=== PATIENT | female | born 1950 | race Caucasian/White ===

== ENCOUNTER 2022-01-03 16:56 | Emergency (ER) | payer OTHER ==
--- OUTSIDE RECORDS SUMMARY | 2022-01-03 16:58 | XMS REPORT | Continuity of Care Document ---
:1950 Author Organization [facility] t Address [address] [place] [address] Care Team Providers Name Role Phone Roby Carreon Attending Clinician Unavailable Kasia-Mbayo_A_AH Attending Clinician Unavailable Kasia-Mbayo_A_AH Admitting Clinician Unavailable Payers Payer Name Policy Type Policy Number Effective Date Expiration Date S [facility] [place] - [id number] [employer] 00:00:00 (MEDICARE REPLACEMENT/ADVANT AGE - HMO) Problems This patient has no known problems. Allergies, Adverse Reactions, Alerts This patient has no known allergies or adverse reactions. Medications Ordered Filled Start Stop Current Ordering Indication Dosage Frequency Signature Comments Components Source Medication Medication Date Date Medication? Clinician (SIG) Name Name Calcium Calcium Yes Pietro [address] [facility] Vitamin D-3 Vitamin D-3 Yes Pietro [address] [facility] Hydrocortis Hydrocortis Yes Pietro INSERT ONE [facility] one Acetate one Acetate [facility] UP TO l THREE Outpati TIMES ent DAILY Clinics NEEDED Procedures This patient has no known procedures. Encounters Start End Encounter Admission Attending Care Care Encounter Source Date/Time Date/Time Type Type Clinicians Facility Department ID 2021-11-08 [facility] [id number] [facility] 12:52[facility]21 [id number] [facility] 2021-11-08 Outpatient Carreon, Na [facility] [id number] [facility] [address] 12:36:26 [id number] [facility] 2021-11-08 Outpatient Renea Carreon [facility] [id number] [facility] [address] 12:35:19 [id number] [facility] 2021-11-08 Outpatient [facility] [id number] [facility] [address] 12:34:09 [id number] [facility] 2021-11-08 Outpatient [facility] [id number] [facility] 12:29:16 [id number] [facility] 2021-11-08 Outpatient [facility] [id number] [facility] 12:18:22 [id number] [facility] 2021-11-08 Outpatient [facility] [id number] [facility] 12:17:42 [id number] [facility] 2021-08-01 2021-08-01 Outpatient [facility] [id number] [facility] 2021-04-22 2021-04-22 Outpatient [facility] [id number] [facility] 2021-02-03 2021-02-03 Outpatient [facility] [id number] [facility] 2021-01-27 2021-01-27 Outpatient [facility] [id number] [facility] 2021-01-27 2021-01-27 Outpatient [facility] [id number] [facility] 2021-01-27 2021-01-27 Outpatient [facility] [id number] [facility] 2020-12-15 2020-12-15 Outpatient [facility] [id number] [facility] 2020-12-13 2020-12-13 Outpatient [facility] [id number] [facility] 2020-11-17 2020-11-17 Outpatient [facility] [id number] [facility] 2020-11-09 2020-11-09 Outpatient [facility] [id number] [facility] 2020-10-18 2020-10-[facility] [id number] 2019-12-02 2019-12-02 [facility] [address] [place] [address] 07:23:00 07:23:00 _A_ [id number] Family Pract[facility] e 2019-10-02 2019-10-02 [facility] [id number] [address] 08:15:00 08:15:00 [facility] Clin[facility] 2019-09-03 2019-09-03 [facility] [id number] [address] 13:45:00 13:45:00 [facility] Clinics 2019-06-12 2019-06-12 [facility] [id number] 08:00:00 08:00:00 t [facility] Results This patient has no known results.
[2022-01-03] MEDS ORDERED: ONDANSETRON 4 MG/2 ML VIAL ONE ×2 (17:23→21:02)
[2022-01-03] MEDS ORDERED: FENTANYL CITR 100 MCG/2 ML ONE (17:23)
[2022-01-03 17:40] LABS: Absolute Lymphocytes (CBC) 1.4 K/uL (0.7-4.9); Hematocrit 43.3 % (36.0-45.0); Lymphocytes % 14.4 % (15.3-44.8); MPV 8.7 fL (7.6-11.3); RBC Red Blood Cell Count 4.46 M/uL (3.86-4.86)
[2022-01-03 17:45] LABS: Protime INR 0.91
[2022-01-03 18:01] LABS: Potassium 3.7 mmol/L (3.5-5.1)
--- NOTE | 2022-01-03 18:05 | RAD REPORT ---
EXAM DESCRIPTION: CT - Head Brain Wo Cont - 01/03/2022 5:56 pm CLINICAL HISTORY: TRAUMA COMPARISON: No comparisons TECHNIQUE: Axial 5 mm thick images of the head were obtained without IV contrast. All CT scans are performed using dose optimization technique as appropriate and may include automated exposure control or mA/KV adjustment according to patient size. FINDINGS: No intracranial hemorrhage, mass, edema or shift of mid-line structures. No acute infarcti on changes seen. No cortical edema or sulcal effacement. Atrophy changes are minimal. Ventricles are normal. No significant chronic ischemic changes seen. Arterial tree calcifications are present. Mastoid air cells and visualized portions of the paranasal sinuses are clear. No acute bony findings. IMPRESSION: Negative non-contrast CT head examination for acute finding.
--- NOTE | 2022-01-03 19:10 | RAD REPORT ---
EXAM DESCRIPTION: RAD - Tib Fib Left - 01/03/2022 6:32 pm CLINICAL HISTORY: Fall, leg pain COMPARISON: None. FINDINGS: Oblique fracture is present through the proximal shaft of the fibula with 1 full shaft wid th anterior displacement of the distal fracture fragment. Spiral type fracture is evident in the dist al shaft tibia. This is comminuted with a large free fracture fragment. Posterior fracture fragment i s displaced posteriorly 1 full shaft width. There is very slight medial angulation of the distal tibi a fracture fragment. No knee or ankle acute finding. Prominent degenerative changes are present in the midfoot. Soft tissue swelling changes are present. No foreign body in the soft tissues. IMPRESSION: Proximal left fibula shaft fracture and distal tibia shaft fracture as detailed.
[2022-01-03] MEDS ORDERED: LIDOCAINE 1% MPF 5 ML VIAL ONE (19:17)
--- NOTE | 2022-01-03 19:32 | EDPHYS ---
Physician Documentation [facility] Name: Preethi Ritter Age: 71 yrs Sex: Female : 1950 Arrival Date: 01/03/2022 Time: 16:59 Bed 3 Private MD: ED Physician Rajat Jackson HPI: 01/03 17:51 This 71 yrs old Female presents to ER via EMS with complaints of Fall Injury. jr8 17:51 Details of fall: The patient fell from an upright position, while standing. Onset: The jr8 symptoms/episode began/occurred acutely, today. Associated injuries: The patient sustained injury to the head, laceration, 2 cm(s), pain, left leg, deformity. Severity of symptoms: At their worst the symptoms were moderate, in the emergency department the symptoms are unchanged. The patient has not experienced similar symptoms in the past. The patient has not recently seen a physician. Patient stated that she had 3 shots of tequila and a few beers. Was walking and tripped falling into the fireplace. Hit right side of her head but denies loss of consciousness. Stated that her leg pivoted the wrong way and felt a snap in her lower left leg as well. EMS was called out and found patient to have a markedly deformed left lower extremity with a laceration to the right forehead. Patient denies any other pain or symptoms at this time.. Historical: - Allergies: 17:02 No Known Allergies; ap3 - Home Meds: 17:02 None [Active]; ap3 - PMHx: 17:02 None; ap3 - Immunization history:: Client reports receiving the 2nd dose of the Covid vaccine, and booster Flu vaccine is up to date. - Social history:: Smoking status: Patient reports the use of cigarette tobacco products, smokes one pack cigarettes per day. Patient uses alcohol, on a daily basis. ROS: 17:51 Eyes: Negative for injury, pain, redness, and discharge, ENT: Negative for injury, jr8 pain, and discharge, Neck: Negative for injury, pain, and swelling, Cardiovascular: Negative for chest pain, palpitations, and edema, Respiratory: Negative for shortness of breath, cough, wheezing, and pleuritic chest pain, Abdomen/GI: Negative for abdominal pain, nausea, vomiting, diarrhea, and constipation, Back: Negative for injury and pain, Neuro: Negative for headache, weakness, numbness, tingling, and seizure. 17:51 MS/extremity: Positive for decreased range of motion, deformity, ecchymosis, pain, swelling, tenderness, of the left leg. 17:51 Skin: Positive for laceration(s), of the face. Exam: 17:51 Constitutional: This is a well developed, well nourished patient who is awake, alert, jr8 and in no acute distress. 17:51 Eyes: Pupils equal round and reactive to light, extra-ocular motions intact. Lids and lashes normal. Conjunctiva and sclera are non-icteric and not injected. Cornea within normal limits. Periorbital areas with no swelling, redness, or edema. ENT: Nares patent. No nasal discharge, no septal abnormalities noted. Tympanic membranes are normal and external auditory canals are clear. Oropharynx with no redness, swelling, or masses, exudates, or evidence of obstruction, uvula midline. Mucous membranes moist. Neck: Trachea midline, no thyromegaly or masses palpated, and no cervical lymphadenopathy. Supple, full range of motion without nuchal rigidity, or vertebral point tenderness. No Meningismus. Chest/axilla: Normal chest wall appearance and motion. Nontender with no deformity. No lesions are appreciated. Cardiovascular: Regular rate and rhythm with a normal S1 and S2. No gallops, murmurs, or rubs. Normal PMI, no JVD. No pulse deficits. Respiratory: Lungs have equal breath sounds bilaterally, clear to auscultation and percussion. No rales, rhonchi or wheezes noted. No increased work of breathing, no retractions or nasal flaring. Abdomen/GI: Soft, non-tender, with normal bowel sounds. No distension or tympany. No guarding or rebound. No evidence of tenderness throughout. Back: No spinal tenderness. No costovertebral tenderness. Full range of motion. Skin: Warm, dry with normal turgor. Normal color with no rashes, no lesions, and no evidence of cellulitis. Neuro: Awake and alert, GCS 15, oriented to person, place, time, and situation. Motor strength 5/5 in all extremities. Sensory grossly intact. 17:51 Head/face: Noted is a laceration(s), that is deep, that is linear, 2 cm(s), of the right forehead. 17:51 Musculoskeletal/extremity: Extremities: grossly normal except: noted in the left leg: Patient has markedly deformed left lower extremity at the lower one third of the tibia. Bruising overlies the deformed area but there is no laceration or puncture to indicate open fracture. Patient has normal sensation to the foot with normal range of motion. 2+ dorsal pedal is pulses present to affected extremity. The remainder of the extremity unremarkable. Vital Signs: 17:01 BP 146 / 96; Pulse 91; Pulse Ox 94% on R/A; Weight 67.13 kg; Height 5 ft. 4 in. (162.56 ap3 cm); 18:44 BP 137 / 86; Pulse 91; Pulse Ox 97% on 2 lpm NC; ap3 19:19 BP 157 / 92; Pulse 97; Resp 17 S; Pulse Ox 96% on R/A; lg3 17:01 Body Mass Index 25.40 (67.13 kg, 162.56 cm) ap3 Procedures: 19:28 Splinting: Splint applied to left leg using Orthoglass splint, applied by myself. jr8 Examined by me, post splint application: neurovascular intact, 2+ distal pulses palpable, brisk capillary refill noted, Patient tolerated well. Laceration: 19:31 Wound Repair of 2cm ( 0.8in ) subcutaneous laceration to face. Linear shaped.. Minimal jr8 bleeding noted.. Distal neuro/vascular/tendon intact. Anesthesia: Local anesthetic administered with 2 mls of 1% lidocaine. Wound prep: Moderate cleansing with hibiclenz, Wound explored extensively. Skin closed with 2 4-0 Prolene using interrupted sutures and sterile technique. Patient tolerated well. MDM: 17:03 Patient medically screened. jr8 19:28 Data reviewed: vital signs, nurses notes, lab test result(s), radiologic studies, plain jr8 films. Data interpreted: Pulse oximetry: on room air is 96 %. Interpretation: normal. Counseling: I had a detailed discussion with the patient and/or guardian regarding: the historical points, exam findings, and any diagnostic results supporting the discharge/admit diagnosis, lab results, radiology results, the need to transfer to another facility, [facility] does not immediately have the required specialist. 19:28 ED course: Spoke with orthopedics at [facility] who accepted. Awaiting on medicine jr8 to call back. 01/03 17:16 Order name: CBC with Diff; Complete Time: 17:57 01/03 17:16 Order name: Basic Metabolic Panel; Complete Time: 18:13 01/03 17:16 Order name: XRAY Tib Fib LEFT; Complete Time: 19:31 01/03 17:16 Order name: Protime (+inr); Complete Time: 17:57 01/03 17:16 Order name: Ptt, Activated; Complete Time: 17:57 01/03 18:33 Order name: COVID-19 SARS RT PCR (Document "Date of Onset" if Symptomatic); Complete bd Time: 20:40 01/03 17:16 Order name: CT Head Brain wo Cont; Complete Time: 18:13 01/03 17:16 Order name: IV; Complete Time: 17:18 Administered Medications: 17:34 Drug: Zofran (Ondansetron) 4 mg Route: IVP; Site: right antecubital; ap3 20:06 Follow up: Response: No adverse reaction lg3 17:34 Drug: fentaNYL (PF) 50 mcg Route: IVP; Site: right antecubital; ap3 20:06 Follow up: Response: No adverse reaction; RASS: Alert and Calm (0) lg3 20:52 Drug: Lidocaine (1 %) 5 mg Route: Infiltration; kd3 21:06 Drug: Tetanus-Diphtheria Toxoid Adult 0.5 ml {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 Exp: kd3 12/29/2022. Lot #: [id number]. } Route: IM; Site: right deltoid; 21:08 CANCELLED (wrong route ): Dilaudid (HYDROmorphone) 1 mg IM once; RASS on ADMIN: kd3 Combtv4, Very Agttd3, Agttd2, Rstlss1, AlertClm0, Drwsy-1, Lt Sdtn-2, Mod Sdtn-3, Dp Sdtn-4, UnArsble-5 21:08 Drug: Zofran (Ondansetron) 4 mg Route: IVP; Site: right forearm; kd3 21:09 Drug: HYDROmorphone 1 mg Route: IVP; Site: right forearm; kd3 Disposition Summary: 01/03/22 19:31 Transfer Ordered Transfer Location: [facility] jr8 Reason: Higher level of care jr8 Condition: Stable jr8 Problem: new jr8 Symptoms: have improved jr8 Accepting Physician: [facility](01/03/22 21:23) lp1 Diagnosis - Oblique Fracture proximal Fibula jr8 - Oblique Fracture Distal Tibia jr8 Forms: - Medication Reconciliation Form jr8 - SBAR form jr8 Addendum: 01/05/2022 06:57 Co-signature as Attending Physician, Rajat Jackson MD. r n Signatures: Dispatcher [employer] EDMS Rajat Jackson MD MD rn Radha Bird, RN RN lp1 Perico Norton PA PA jr8 Gayathri Ch RN RN ap3 Mecca Narvaez RN RN kd3 Mariella Adame RN lg3 Corrections: (The following items were deleted from the chart) 01/03 21:08 21:07 Dilaudid (HYDROmorphone) 1 mg IM once; RASS on ADMIN: Combtv4, Very Agttd3, kd3 Agttd2, Rstlss1, AlertClm0, Drwsy-1, Lt Sdtn-2, Mod Sdtn-3, Dp Sdtn-4, UnArsble-5 ordered. kd3 21: 19:31 [facility] jr8 lp1
--- NOTE | 2022-01-03 19:32 | ER ---
Nurse's Notes [facility] Name: Preethi Ritter Age: 71 yrs Sex: Female : 1950 Arrival Date: 01/03/2022 Time: 16:59 Bed 3 Private MD: Diagnosis: Oblique Fracture proximal Fibula;Oblique Fracture Distal Tibia Presentation: 01/03 16:59 Chief complaint: Patient states: she was having a few drinks today, then fell from ap3 standing height while reaching for the remote. patient states she had 3 shots of tequila and approx 3 beer prior to fall. EMS reports a left lower leg deformity and has placed a splint. Care prior to arrival: Splint applied. Mechanism of Injury: Fall from standing position. Trauma event details: Injury occurred in the [facility], Injury occurred: at home. Injury occurred: January 03, 2022. 16:59 Acuity: PETE 3 ap3 16:59 Method Of Arrival: EMS: [facility] ap3 17:01 Coronavirus screen: Vaccine status: Patient reports receiving the 2nd dose of the covid ap3 vaccine. and booster At this time, the client does not indicate any symptoms associated with coronavirus-19. Ebola Screen: No symptoms or risks identified at this time. Initial Sepsis Screen: Does the patient meet any 2 criteria? No. Patient's initial sepsis screen is negative. Does the patient have a suspected source of infection? No. Patient's initial sepsis screen is negative. Risk Assessment: Do you want to hurt yourself or someone else? Patient reports no desire to harm self or others. Onset of symptoms was January 03, 2022. Triage Assessment: 17:03 General: Appears in no apparent distress. Behavior is calm. Pain: Complains of pain in ap3 left leg Pain began suddenly. Neuro: Level of Consciousness is awake, alert, obeys commands, Oriented to person, place, time, situation, Speech is normal. Cardiovascular: Patient's skin is warm and dry. Respiratory: Airway is patent Respiratory effort is even, unlabored, Respiratory pattern is regular, symmetrical. Musculoskeletal: Bony deformity noted of left leg. Injury Description: fall from standing. Historical: - Allergies: 17:02 No Known Allergies; ap3 - Home Meds: 17:02 None [Active]; ap3 - PMHx: 17:02 None; ap3 - Immunization history:: Client reports receiving the 2nd dose of the Covid vaccine, and booster Flu vaccine is up to date. - Social history:: Smoking status: Patient reports the use of cigarette tobacco products, smokes one pack cigarettes per day. Patient uses alcohol, on a daily basis. Screenin:04 Abuse screen: Denies threats or abuse. Nutritional screening: No deficits noted. ap3 Tuberculosis screening: No symptoms or risk factors identified. Fall Risk Fall in past 12 months (25 points). Secondary diagnosis (15 points) impaired mobility, No IV (0 pts). Ambulatory Aid- None/Bed Rest/Nurse Assist (0 pts). Gait- Impaired (20 pts.). Mental Status- Oriented to own ability (0 pts). Total Arana Fall Scale indicates High Risk Score (45 or more points). Fall prevention measures have been instituted. Side Rails Up X 2 Frequent Obs/Assessments Occuring As available patient and family educated on Fall Prevention Program and Strategies. Assessment: 18:45 Reassessment: Patient and/or family updated on plan of care and expected duration. Pain ap3 level reassessed. Patient is alert, oriented x 3, equal unlabored respirations, skin warm/dry/pink. 19:11 Reassessment: Patient appears in no apparent distress at this time. Patient and/or lg3 family updated on plan of care and expected duration. Pain level reassessed. Patient is alert, oriented x 3, equal unlabored respirations, skin warm/dry/pink. Vital Signs: 17:01 BP 146 / 96; Pulse 91; Pulse Ox 94% on R/A; Weight 67.13 kg; Height 5 ft. 4 in. (162.56 ap3 cm); 18:44 BP 137 / 86; Pulse 91; Pulse Ox 97% on 2 lpm NC; ap3 19:19 BP 157 / 92; Pulse 97; Resp 17 S; Pulse Ox 96% on R/A; lg3 17:01 Body Mass Index 25.40 (67.13 kg, 162.56 cm) ap3 ED Course: 16:59 Patient arrived in ED. jg9 16:59 Gayathri Ch, ADDISON is Primary Nurse. ap3 17:01 Triage completed. ap3 17:03 Perico Norton PA is PHCP. jr8 17:03 Rajat Jackson MD is Attending Physician. jr8 17:05 Arm band placed on left wrist. ap3 17:05 Patient has correct armband on for positive identification. Placed in gown. Bed in low ap3 position. Call light in reach. Side rails up X2. Pulse ox on. NIBP on. Door closed. Noise minimized. 17:14 Inserted saline lock: 22 gauge in right antecubital area, using aseptic technique. ap3 Blood collected. 17:49 Pt visited by Friend. ap3 17:[address] via wheelchair. ap3 17:58 CT Head Brain wo Cont In Process Unspecified. EDMS 18:33 XRAY Tib Fib LEFT In Process Unspecified. EDMS 18:36 initiated transfer to [facility]. bd 19:18 Primary Nurse role handed off by Gayathri Ch, ADDISON [facility] 19:19 Mariella Adame, ADDISON is Primary Nurse. lg3 20:23 administrative approval given by Annemarie London/ patient has been accepted to [address] 16 [address] 1635/ Dr. Durand accepted the patient in transfer/report to be called to [phone]. 21:10 No provider procedures requiring assistance completed. Patient transferred, IV remains kd3 in place. 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 Exp: kd3 12/29/2022. Lot #: [id number]. } Route: IM; Site: right deltoid; 21:08 CANCELLED (wrong route ): Dilaudid (HYDROmorphone) 1 mg IM once; RASS on ADMIN: kd3 Combtv4, Very Agttd3, Agttd2, Rstlss1, AlertClm0, Drwsy-1, Lt Sdtn-2, Mod Sdtn-3, Dp Sdtn-4, UnArsble-5 21:08 Drug: Zofran (Ondansetron) 4 mg Route: IVP; Site: right forearm; kd3 21:09 Drug: HYDROmorphone 1 mg Route: IVP; Site: right forearm; kd3 Outcome: 19:31 ER care complete, transfer ordered by MD. bray 21:11 Transferred by ground EMS kd3 21:11 Condition: stable 21:11 Discharge instructions given to patient, family, Instructed on discharge instructions, the need for transfer, Demonstrated understanding of instructions. 21:23 Patient left the ED. lp1 Signatures: Dispatcher [employer] EDMS Andreia Young Laura, RN RN lp1 Perico Norton PA PA jr8 Gayathri Ch RN RN ap3 Kristen Kunz mw2 Mariella Adame RN RN lg3 Mecca Narvaez RN RN kd3 Ericka Garcia RN RN jg9
[2022-01-03] MEDS ORDERED: TETANUS & DIPHTHERIA TOX,ADULT 0.5 ML VIAL ONE (20:33)
[2022-01-03] MEDS ORDERED: HYDROMORPHONE HCL 0.5 MG/0.5 ML INJ ONE (21:02)
[2022-01-03 21:36] VITALS: BP 157/92; O2SAT 96
== END 2022-01-03 21:23 | disposition short-term general hospital (02) ==
LOC: ER 16:56
PROC: 0JQ10ZZ Repair Face Subcutaneous Tissue and Fascia, Open Approach (ICD-10-PCS; principal; 2022-01-03)
PROC: 2W3RX1Z Immobilization of Left Lower Leg using Splint (ICD-10-PCS; 2022-01-03)
DX: S82.432A Displaced oblique fracture of shaft of left fibula, initial encounter for closed fracture (principal); S82.232A Displaced oblique fracture of shaft of left tibia, initial encounter for closed fracture; S01.81XA Laceration without foreign body of other part of head, initial encounter; W01.198A Fall on same level from slipping, tripping and stumbling with subsequent striking against other object, initial encounter; Y93.01 Activity, walking, marching and hiking; Z23 Encounter for immunization; Z20.822 Contact with and (suspected) exposure to COVID-19; F17.210 Nicotine dependence, cigarettes, uncomplicated
CPT/HCPCS: 85025; 80048; 36415; 85610; 85730; 70450; 73590; 90471; 90714; 99285; 12011; 29515; U0003; J3010; J1170; J2405 ×2

== ENCOUNTER → 2023-07-29 | Day surgery (SDC) | payer OTHER ==
--- NOTE | 2023-07-29 14:52 | RAD REPORT ---
EXAM DESCRIPTION: Ultrasound-guided vacuum assisted left breast core biopsy CLINICAL HISTORY: Breast mass R92.8 COMPARISON: 3D DIAG UNI F/U dated 07/09/2023; Follow Up Breast Axilla Comp dated 07/09/2023 FINDINGS: Informed consent was obtained and time-out was performed. Initial scanning revealed the taller than wide hypoechoic lesion present approximately at 2 o'clock p osition, corresponding to the finding on prior diagnostic mammogram and ultrasound. The patient's lef t breast was prepped and draped in the usual sterile fashion. 1% lidocaine was used for local anesthe tic purposes. Utilizing aseptic technique and real-time ultrasound guidance, a 12 gauge vacuum assisted core biopsy device was used to obtain 3 soft core specimens through the mass of interest. A post biopsy clip was then placed. All collected material was sent for cytology. Patient tolerated procedure well. IMPRESSION: Successful ultrasound guided vacuum assisted left breast mass biopsy.
== END ==
LOC: DS 09:31
PROVIDERS: ATTEND Family Medicine
DX: C50.412 Malignant neoplasm of upper-outer quadrant of left female breast (principal); Z17.0 Estrogen receptor positive status [ER+]
CPT/HCPCS: 19083; 88305

== ENCOUNTER 2023-08-28 10:20 | Emergency (ER) | payer OTHER ==
--- OUTSIDE RECORDS SUMMARY | 2023-08-28 10:23 | XMS REPORT | Clinical Summary ---
:1950 Author Organization [facility] MD [facility] Address [address] [place] [address] Care Team Providers Name Role Phone Ana Lilia Miller MD Unavailable Allergies Not on File Medications Not on file Active Problems Not on file Encounters Date Type Department Care Team Description 08/12/2023 Travel after 08/28/2022 Social History Tobacco Use Types Packs/Day Years Used Date Smoking Tobacco: Never Assessed Sex and Gender Information Value Date Recorded Sex Assigned at Not on file Gender Identity Not on file Sexual Orientation Not on file Job Start Date Occupation Industry Not on file Not on file Not on file Last Filed Vital Signs Not on file Plan of Treatment Not on file Results Not on fileafter 08/28/2022 Insurance Payer Benefit Plan / Subscriber ID Effective Phone Address T ype Group Dates [employer] WE[employer] [id number] 2022-Prese [address] Medicare MEDICARE MEDICARE [place], [place] ADVANTAGE ADVANTAGE [id number] Preethi Ritter Personal/Family Self 1950 [facility] [place] [place] [address] Care Teams Education Spec Relationship Specialty Start Date End Date Ana Lilia Miller MD PCP - External Referring Family Practice 08/12/23 [address] [place] [address]
--- OUTSIDE RECORDS SUMMARY | 2023-08-28 10:26 | XMS REPORT | Continuity of Care Document ---
:1950 Author Organization [facility] t Address [address] [facility] [facility] [place] [address] Care Team Providers Name Role Phone KOJO BURTON Primary Care Physician Unavailable Ana Lilia Miller Attending Clinician Unavailable Kooj Burton Attending Clinician Unavailable CRYSTAL SOUSA Attending Clinician Unavailable ALMA DELIA PALMER Attending Clinician Unavailable ALMA DELAI PALMER Attending Clinician Unavailable Doctor Unassigned, Kenly Attending Clinician Unavailable Mariam Mendieta MD Attending Clinician MARIAM MENDIETA Attending Clinician Unavailable Ladarius CRAWFORD, Maite Petersen Attending Clinician Christianne Rahman MD Attending Clinician [phone] Reza CRAWFORD, Neelima Gaston Attending Clinician CHRISTIANNE RAHMAN Attending Clinician Unavailable Ramo CRAWFORD, Roshni Sagastume Attending Clinician [phone] Nasrin Hernandez MD Attending Clinician Lorenzo Stoner MD Attending Clinician [phone] Marlaaycamille_A_AH Attending Clinician Unavailable MARIAM MENDIETA Admitting Clinician Unavailable MAITE PROCTOR Admitting Clinician Unavailable Sweta_A_AH Admitting Clinician Unavailable Payers Payer Name Policy Type Policy Number Effective Date Expiration Date Hannah montgomery [employer] [place] [id number] 2023 PLUS CLASSIC NO 00:00:00 PREMIUM HMO Well[employer] MCR C1 [id number] 2020 [facility] 00:00:00 - [facility] Wellcare C1 [id number] 2020 [facility] 00:00:00 - [facility] [place] [id number] - [employer] 00:00:00 (MEDICARE REPLACEMENT/ADV ANTAGE - HMO) Problems Condition Condition Condition Status Onset Resolution Last Treating Co mments Source Name Details Category Date Date Treatment Clinician Date Pain in Pain in Disease Active 2022-10 Univers both lower both lower 0-04 [facility] [place] [facility] Hyperlipid Hyperlipid Disease Active 2022-10 U nivers emia, emia, 0-04 ity [place] unspecifie [place] hyperlipid hyperlipid Br anch emia type emia type Cigarette Cigarette Disease Active 2022-10 Uni vers smoker smoker 0-04 ity of 00:00: [place] 00 Medical Branch Tibia Tibia Disease Active [facility] fracture fracture 01-03 00:00: Medical [address] [place] [address] [id number] Unsteady Problem Commo n gait when Spirit walking [facility] 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 unspecifie Medica l d type [place] [id number] Left ankle Problem Co mmon swelling [facility] [id number] Vitamin D Problem Comm on deficiency [facility] [id number] Trigger Problem Commo n finger, Spirit left ring - CHI finger [facility] [id number] Hyperchole Problem Com mon sterolemia Spirit - [facility] [id number] Internal Problem Commo n hemorrhoid Spirit s [facility] [id number] Elevated Problem Comm on BP without Spirit diagnosis - CHI of hypertensi [facility] [id number] Pain, Problem Commo n [id number] joint, Spirit hand, left - [facility] Tobacco Cigarette Problem Commo n user nicotine Spirit dependence - [facility] without complicati [facility] [id number] Age Problem Common related Spirit osteoporos - [facility] al fracture presence Smoker Smoker Problem [facility] Diverticul Diverticul Problem C ommon ar disease osis [facility] of colon [facility] Allergies, Adverse Reactions, Alerts Allergy Allergy Status Severity Reaction(s) Onset Inactive Treating Comm ents Source Name Type Date Date Clinician NO KNOWN Allergy [facility] Drug [facility] Social [facility] Social Habit Start Date Stop Date Quantity Comments Source History of tobacco Passive smoker Un iversity of use [facility] Sexual orientation [facility] Tobacco use and 2023-07-17 2023-07-17 Smokeless Universit y of exposure 00:00:00 00:00:00 tobacco non-user [facility] History of Social 2023-07-17 2023-07-17 Univers ity of function 00:00:00 00:00:00 [facility] Cigarettes smoked 2022-01-03 2022-01-03 [facility] [address] [facility] current (pack per 00:00:00 00:00:00 Medical Center day) - Reported Cigarette 2022-01-03 2022-01-03 [facility] [address] [facility] pack-years 00:00:00 00:00:00 [facility] Sex Assigned At [birth year] [facility] St Светлана velasquez 00:00:00 00:00:00 [facility] Center Smoking Status Start Date Stop Date Source Tobacco smoking consumption [facility] daily 2023-07-17 00:00:00 Univers [facility] Medications Ordered Filled Start Stop Current Ordering Indication Dosage Frequency Signature Comments Components Source Medication Medication Date Date Medication? Clinician (SIG) Name Name rosuvastati 2022-0 Yes at Univer s n 5 mg 8-23 bedtime. ity of tablet 00:00: [place] [facility] rosuvastati 3-0 Yes at Univer s n 5 mg 8-23 bedtime. ity of tablet 00:00: [place] [facility] rosuvastati 3-0 Yes at Univer s n 5 mg 8-23 bedtime. ity of tablet 00:00: [place] [facility] rosuvastati 2022-0 Yes at Univer s n 5 mg 8-23 bedtime. ity of tablet 00:00: [place] [facility] rosuvastati 2022-0 Yes at Univer s n 5 mg 8-23 bedtime. ity of tablet 00:00: [place] [facility] rosuvastati 2022-0 Yes at Univer s n 5 mg 8-23 bedtime. ity of tablet 00:00: [place] [facility] rosuvastati 2022-0 Yes at Univer s n 5 mg 8-23 bedtime. ity of tablet 00:00: [place] [facility] rosuvastati 2022-0 Yes at Univer s n 5 mg 8-23 bedtime. ity of tablet 00:00: [place] [facility] rosuvastati 2022-0 Yes at Univer s n 5 mg 8-23 bedtime. ity of tablet 00:00: [place] [facility] rosuvastati 3-0 Yes at Univer s n 5 mg 8-23 bedtime. ity of tablet 00:00: [place] [facility] rosuvastati 3-0 Yes at Univer s n 5 mg 8-23 bedtime. ity of tablet 00:00: [place] [facility] Branch calcium 2021-0 2023- No 1{tbl} QD Take 1 [facility] t carbonate-v -01-13 tablet by Светлана velasquez itamin D3 00:00: 23:59 mouth Medica l (OSCAL-D) 00 :00 daily. Center 500 mg(1,250mg) -200 unit per tablet calcium 2021-0 3- No 1{tbl} QD Take 1 [facility] t carbonate-v -01-13 tablet by Светлана velasquez itamin D3 00:00: 23:59 mouth Medica l (OSCAL-D) 00 :00 daily. Center 500 mg(1,250mg) -200 unit per tablet calcium 2022- No 1{tbl} QD Take 1 [facility] t carbonate-v 4-11 17-02 tablet by Светлана kes itamin D3 00:00: 23:59 mouth Medica l (OSCAL-D) 00 :00 daily. Center 500 mg(1,250mg) -200 unit per tablet calcium 2022- No 1{tbl} QD Take 1 [facility] t carbonate-v 4-02 -02 tablet by Светлана kes itamin D3 00:00: 23:59 mouth Medica l (OSCAL-D) 00 :00 daily. Center 500 mg(1,250mg) -200 unit per tablet calcium 2022- No 1{tbl} QD Take 1 [facility] t carbonate-v -11 17-02 tablet by Светлана kes itamin D3 00:00: 23:59 mouth Medica l (OSCAL-D) 00 :00 daily. Center 500 mg(1,250mg) -200 unit per tablet calcium 2022- No 1{tbl} QD Take 1 [facility] t carbonate-v 4-11 17-02 tablet by Светлана kes itamin D3 00:00: 23:59 mouth Medica l (OSCAL-D) 00 :00 daily. Center 500 mg(1,250mg) -200 unit per tablet nicotine 2021- No 1{patch QD Place [address] (NICODERM 4-02 05-02 } patch onto Nat es CQ) 21 00:00: 23:59 the skin Medica l mg/24 hr 00 :00 daily for Center patch 30 days. nicotine 2021- No 1{patch QD Place [address] (NICODERM 4-02 05-02 } patch onto Nat es CQ) 21 00:00: 23:59 the skin Medica l mg/24 hr 00 :00 daily for Center patch 30 days. nicotine 2021- No 1{patch QD Place [address] (NICODERM 4-02 05-02 } patch onto Nat es CQ) 21 00:00: 23:59 the skin Medica l mg/24 hr 00 :00 daily for Center patch 30 days. nicotine 2021- No 1{patch QD Place [address] (NICODERM 4-02 05-02 } patch onto Nat es CQ) 21 00:00: 23:59 the skin Medica l mg/24 hr 00 :00 daily for Center patch 30 days. UNKNOWN Yes LEFT LEG - [facility] 4-01 TOE TOUCH [facility] 00:00: WEIGHT Medical 00 BEARING Center ONLY FOR SIX WEEKS.. UNKNOWN Yes LEFT LEG - [facility] 4-01 TOE TOUCH [facility] 00:00: WEIGHT Medical 00 BEARING Center ONLY FOR SIX WEEKS.. UNKNOWN Yes LEFT LEG - [facility] 4-01 TOE TOUCH [facility] 00:00: WEIGHT Medical 00 BEARING Center ONLY FOR SIX WEEKS.. UNKNOWN Yes LEFT LEG - [facility] 4-01 TOE TOUCH [facility] 00:00: WEIGHT Medical 00 BEARING Center ONLY FOR SIX WEEKS.. UNKNOWN Yes LEFT LEG - [facility] 4-01 TOE TOUCH [facility] 00:00: WEIGHT Medical 00 BEARING Center ONLY FOR SIX WEEKS.. UNKNOWN Yes LEFT LEG - [facility] 4-01 TOE TOUCH [facility] 00:00: WEIGHT Medical 00 BEARING Center ONLY FOR SIX WEEKS.. senna-docus 2022- No 1{tbl} Take [address] ate -10 17- tablet by [facility] (SENOKOT S) 00:00: 23:59 mouth Medi sasha 8.6-50 mg 00 :00 every Center per tablet night as needed for Constipati on. senna-docus 2022- No 1{tbl} Take [address] ate 01-12- tablet by [facility] (SENOKOT S) 00:00: 23:59 mouth Medi sasha 8.6-50 mg 00 :00 every Center per tablet night as needed for Constipati on. senna-docus 2022- No 1{tbl} Take [address] ate -10 17- tablet by [facility] (SENOKOT S) 00:00: 23:59 mouth Medi sasha 8.6-50 mg 00 :00 every Center per tablet night as needed for Constipati on. senna-docus 2022- No 1{tbl} Take [address] ate 01-12 tablet by [facility] (SENOKOT S) 00:00: 23:59 mouth Medi sasha 8.6-50 mg 00 :00 every Center per tablet night as needed for Constipati on. senna-docus 2022- No 1{tbl} Take [address] ate 01-12 tablet by [facility] (SENOKOT S) 00:00: 23:59 mouth Medi sasha 8.6-50 mg 00 :00 every Center per tablet night as needed for Constipati on. senna-docus 2022- No 1{tbl} Take [address] ate 01-12 tablet by [facility] (SENOKOT S) 00:00: 23:59 mouth Medi sasha 8.6-50 mg 00 :00 every Center per tablet night as needed for Constipati on. acetaminoph 2022- No 650mg Take [address] en 01-12 tablets [facility] (TYLENOL) 00:00: 23:59 (650 mg Medi sasha 325 MG 00 :00 total) by Center tablet mouth every 4 (four) hours as needed for up to 360 days. acetaminoph 2022- No 650mg Take [address] en 01-12 tablets [facility] (TYLENOL) 00:00: 23:59 (650 mg Medi sasha 325 MG 00 :00 total) by Center tablet mouth every 4 (four) hours as needed for up to 360 days. acetaminoph 2022- No 650mg Take [address] en 01-12 tablets [facility] (TYLENOL) 00:00: 23:59 (650 mg Medi sasha 325 MG 00 :00 total) by Center tablet mouth every 4 (four) hours as needed for up to 360 days. acetaminoph 2022- No 650mg Take [address] en 01-12 tablets [facility] (TYLENOL) 00:00: 23:59 (650 mg Medi sasha 325 MG 00 :00 total) by Center tablet mouth every 4 (four) hours as needed for up to 360 days. acetaminoph 2022- No 650mg Take [address] en 01-12 tablets [facility] (TYLENOL) 00:00: 23:59 (650 mg Medi sasha 325 MG 00 :00 total) by Center tablet mouth every 4 (four) hours as needed for up to 360 days. acetaminoph No 650mg Take [address] en 01-12 tablets [facility] (TYLENOL) 00:00: 23:59 (650 mg Medi sasha 325 MG 00 :00 total) by Center tablet mouth every 4 (four) hours as needed for up to 360 days. aspirin 81 2021- No 81mg QD Take [address] MG EC 01-12 tablet (81 [facility] tablet 00:00: 23:59 mg total) Medic al 00 :00 by mouth Center daily for 21 days. aspirin 81 2021- No 81mg QD Take [address] MG EC 01-12 tablet (81 [facility] tablet 00:00: 23:59 mg total) Medic al 00 :00 by mouth Center daily for 21 days. aspirin 81 2021- No 81mg QD Take [address] MG EC 01-12 tablet (81 [facility] tablet 00:00: 23:59 mg total) Medic al 00 :00 by mouth Center daily for 21 days. aspirin 81 2021- No 81mg QD Take [address] MG EC 01-12 tablet (81 [facility] tablet 00:00: 23:59 mg total) Medic al 00 :00 by mouth Center daily for 21 days. cephalexin 2021- No 250mg Take [address] [facility] (KEFLEX) 01-12 capsule [facility] 250 MG 00:00: 23:59 (250 mg Medical capsule 00 :00 total) by Center mouth every 6 (six) hours for 5 days. HYDROcodone 2021- No 1{tbl} Take [address] -acetaminop 01-12 tablet by Светлана eva bloom (NORCO 00:00: 23:59 mouth Medic al 5-325) 00 :00 every 4 Center 5-325 mg (four) per tablet hours as needed for up to 5 days. Max Daily Amount: 6 tablets cephalexin 2021- No 250mg Take [address] [facility] (KEFLEX) 01-12 capsule [facility] 250 MG 00:00: 23:59 (250 mg Medical capsule 00 :00 total) by Center mouth every 6 (six) hours for 5 days. HYDROcodone 2021- No 1{tbl} Take [address] -acetaminop 01-12-06 tablet by Светлана bloom (NORCO 00:00: 23:59 mouth Medic al 5-325) 00 :00 every 4 Center 5-325 mg (four) per tablet hours as needed for up to 5 days. Max Daily Amount: 6 tablets cephalexin 2021- No 250mg Take [address] [facility] (KEFLEX) 01-12- capsule [facility] 250 MG 00:00: 23:59 (250 mg Medical capsule 00 :00 total) by Center mouth every 6 (six) hours for 5 days. HYDROcodone 2021- No 1{tbl} Take [address] -acetaminop 01-12- tablet by Светлана bloom (NORCO 00:00: 23:59 mouth Medic al 5-325) 00 :00 every 4 Center 5-325 mg (four) per tablet hours as needed for up to 5 days. Max Daily Amount: 6 tablets polyethylen 2021- No 17g Take [address] e glycol -10 17-04 by mouth [facility] (GLYCOLAX) 00:00: 23:59 daily as Me dical 17 gram 00 :00 needed for Center packet up to 3 days. polyethylen 2021- No 17g Take [address] e glycol -10 17-04 by mouth [facility] (GLYCOLAX) 00:00: 23:59 daily as Me dical 17 gram 00 :00 needed for Center packet up to 3 days. polyethylen 2021- No 17g Take [address] e glycol -10 17-04 by mouth [facility] (GLYCOLAX) 00:00: 23:59 daily as Me dical 17 gram 00 :00 needed for Center packet up to 3 days. Alendronate Alendronate 2021- No Alendronat Sodium 70 Sodium 70 7-15 01-11 e Sodium MG MG 00:00: 00:00 70 MG 00 :00 Alendronate Alendronate 2021- No Alendronat Sodium 70 Sodium 70 7-15 -11 e Sodium MG MG 00:00: 00:00 70 MG 00 :00 Celestone Celestone 1-0 No 6mg Com mon Soluspan Soluspan 2-04 Spirit (Betamethas (Betamethas 00:00: - CHI one) one) 00 [facility] Lidocaine Lidocaine 1-0 No 10mg Com 11-17 Spirit 00:00: - [facility]I 00 [facility] Celestone Celestone 2020-0 No 6mg Com mon Soluspan Soluspan 2-04 Spirit (Betamethas (Betamethas 00:00: - CHI one) one) 00 [facility] Lidocaine Lidocaine 2020-0 No 10mg Com 11-17 Spirit 00:00: - CHI 00 [facility] Celestone Celestone 2020-0 No 6mg Com mon Soluspan Soluspan 2-04 Spirit (Betamethas (Betamethas 00:00: - CHI one) one) 00 [facility] Lidocaine Lidocaine 2020-0 No 10mg Com 11-17 Spirit 00:00: - CHI 00 [facility] Celestone Celestone 1-0 No 6mg Com mon Soluspan Soluspan 2-04 Spirit (Betamethas (Betamethas 00:00: - CHI one) one) 00 [facility] Lidocaine Lidocaine 1-0 No 10mg Com 11-17 Spirit 00:00: - CHI 00 [facility] Celestone Celestone 1-0 No 6mg Com mon Soluspan Soluspan 2-04 Spirit (Betamethas (Betamethas 00:00: - CHI one) one) 00 [facility] Lidocaine Lidocaine 1-0 No 10mg Com 11-17 Spirit 00:00: - CHI 00 [facility] Celestone Celestone 1-0 No 6mg Com mon Soluspan Soluspan 2-04 Spirit (Betamethas (Betamethas 00:00: - CHI one) one) 00 [facility] Lidocaine Lidocaine 1-0 No 10mg Com 11-17 Spirit 00:00: - CHI 00 [facility] Celestone Celestone 2020-0 No 6mg Com mon Soluspan Soluspan 2-04 Spirit (Betamethas (Betamethas 00:00: - CHI one) one) 00 [facility] Lidocaine Lidocaine 2020-0 No 10mg Com mon 2-04 Spirit 00:00: - CHI 00 [facility] Betamethaso Betamethaso 2019-1 No .5mL Common ne Sodium ne Sodium 2-20 Spiri t Phosphate Phosphate 00:00: - C HI 00 [facility] LIDOCAINE LIDOCAINE 2019-1 No .5mL Com mon HCL 10MG/ML HCL 10MG/ML 2-20 S pirit 00:00: - CHI 00 [facility] Betamethaso Betamethaso 2019-1 No .5mL Common ne Sodium ne Sodium 2-20 Spiri t Phosphate Phosphate 00:00: - C HI [facility] LIDOCAINE LIDOCAINE 2019-1 No .5mL Com mon HCL 10MG/ML HCL 10MG/ML 2-20 S pirit 00:00: - CHI [facility] Betamethaso Betamethaso 2019-1 No .5mL Common ne Sodium ne Sodium 2-20 Spiri t Phosphate Phosphate 00:00: - C HI [facility] LIDOCAINE LIDOCAINE 2019-1 No .5mL Com mon HCL 10MG/ML HCL 10MG/ML 2-20 S pirit 00:00: - CHI 00 [facility] Betamethaso Betamethaso 2019-1 No .5mL Common ne Sodium ne Sodium 2-20 Spiri t Phosphate Phosphate 00:00: - C HI [facility] LIDOCAINE LIDOCAINE 2019-1 No .5mL Com mon HCL 10MG/ML HCL 10MG/ML 2-20 S pirit 00:00: - CHI 00 [facility] Betamethaso Betamethaso 2019-1 No .5mL Common ne Sodium ne Sodium 2-20 Spiri t Phosphate Phosphate 00:00: - C HI 00 [facility] LIDOCAINE LIDOCAINE 2019-1 No .5mL Com mon HCL 10MG/ML HCL 10MG/ML 2-20 S pirit 00:00: - CHI 00 [facility] Betamethaso Betamethaso 2019-1 No .5mL Common ne Sodium ne Sodium 2-20 Spiri t Phosphate Phosphate 00:00: - C HI [facility] LIDOCAINE LIDOCAINE 2019-1 No .5mL Com mon HCL 10MG/ML HCL 10MG/ML 2-20 S pirit 00:00: - CHI 00 [facility] Betamethaso Betamethaso 2019-1 No .5mL Common ne Sodium ne Sodium 2-20 Spiri t Phosphate Phosphate 00:00: - C HI 00 [facility] LIDOCAINE LIDOCAINE 2019-1 No .5mL Com mon HCL 10MG/ML HCL 10MG/ML 2-20 S pirit 00:00: - CHI 00 [facility] LIDOCAINE LIDOCAINE 2019-0 No 10mg Com mon HCL 10MG/ML HCL 10MG/ML 7-02 S pirit 00:00: - CHI 00 [facility] Betamethaso Betamethaso 2019-0 No .5mL Common ne Sodium ne Sodium 7-02 Spiri t Phosphate Phosphate 00:00: - C HI 00 [facility] LIDOCAINE LIDOCAINE 2019-0 No 10mg Com mon HCL 10MG/ML HCL 10MG/ML 7-02 S pirit 00:00: - CHI [facility] Betamethaso Betamethaso 2019-0 No .5mL Common ne Sodium ne Sodium 7-02 Spiri t Phosphate Phosphate 00:00: - C HI 00 [facility] LIDOCAINE LIDOCAINE 2019-0 No 10mg Com mon HCL 10MG/ML HCL 10MG/ML 7-02 S pirit 00:00: - CHI 00 [facility] Betamethaso Betamethaso 2019-0 No .5mL Common ne Sodium ne Sodium 7-02 Spiri t Phosphate Phosphate 00:00: - C HI [facility] LIDOCAINE LIDOCAINE 2019-0 No 10mg Com mon HCL 10MG/ML HCL 10MG/ML 7-02 S pirit 00:00: - CHI 00 [facility] Betamethaso Betamethaso 2019-0 No .5mL Common ne Sodium ne Sodium 7-02 Spiri t Phosphate Phosphate 00:00: - C HI [facility] LIDOCAINE LIDOCAINE 2019-0 No 10mg Com mon HCL 10MG/ML HCL 10MG/ML 7-02 S pirit 00:00: - CHI [facility] Betamethaso Betamethaso 2019-0 No .5mL Common ne Sodium ne Sodium 7-02 Spiri t Phosphate Phosphate 00:00: - C HI [facility] LIDOCAINE LIDOCAINE 2019-0 No 10mg Com mon HCL 10MG/ML HCL 10MG/ML 7-02 S pirit 00:00: - CHI [facility] Betamethaso Betamethaso 2019-0 No .5mL Common ne Sodium ne Sodium 7-02 Spiri t Phosphate Phosphate 00:00: - C HI [facility] LIDOCAINE LIDOCAINE 2019-0 No 10mg Com mon HCL 10MG/ML HCL 10MG/ML 7-02 S pirit 00:00: - CHI [facility] Betamethaso Betamethaso 2019-0 No .5mL Common ne Sodium ne Sodium 7- Spiri t Phosphate Phosphate 00:00: - C HI [facility] Calcium Calcium Yes Pietro 1 tablet Co mmon Nathan [facility] - [facility] Vitamin D-3 Vitamin D-3 Yes Pietro 1 tablet Common [facility] - [facility] Hydrocortis Hydrocortis Yes Pietro INSERT ONE Common one Acetate one Acetate Nathan SUPPOSITOR Spirit Y RECTALLY - CHI UP TO [facility] DAILY Center NEEDED Calcium Calcium No 1{table QD Calcium t} Centrum - Centrum - No Centrum - Vitamin D-3 Vitamin D-3 No 1{table QD Vitamin t} D-3 [facility] No 1{table QD [facility] Aspirin 81 Aspirin 81 t} Aspirin 81 MG MG MG [facility] No 1{table QD [facility] Aspirin 81 Aspirin 81 t} Aspirin 81 MG MG MG Centrum - Centrum - No Centrum - Vitamin D-3 Vitamin D-3 No 1{table QD Vitamin t} D-3 Calcium Calcium No 1{table QD Calcium t} [facility] No 1{table QD [facility] Aspirin 81 Aspirin 81 t} Aspirin 81 MG MG MG Centrum - Centrum - No Centrum - Vitamin D-3 Vitamin D-3 No 1{table QD Vitamin t} D-3 Calcium Calcium No 1{table QD Calcium t} [facility] No 1{table QD [facility] Aspirin 81 Aspirin 81 t} Aspirin 81 MG MG MG Centrum - Centrum - No Centrum - Vitamin D-3 Vitamin D-3 No 1{table QD Vitamin t} D-3 Calcium Calcium No 1{table QD Calcium t} valACYclovi valACYclovi No 1{table TID valACYclov r HCl 1 GM r HCl 1 GM t} ir HCl 1 GM [facility] No 1{table QD [facility] Aspirin 81 Aspirin 81 t} Aspirin 81 MG MG MG Vitamin D-3 Vitamin D-3 No 1{table QD Vitamin t} D-3 Alendronate Alendronate No Alendronat Sodium 70 Sodium 70 e Sodium MG MG 70 MG Centrum - Centrum - No Centrum - Calcium Calcium No 1{table QD Calcium t} [facility] No 1{table QD [facility] Aspirin 81 Aspirin 81 t} Aspirin 81 MG MG MG Calcium Calcium No 1{table QD Calcium t} Centrum - Centrum - No Centrum - Vitamin D-3 Vitamin D-3 No 1{table QD Vitamin t} D-3 Alendronate Alendronate No Alendronat Sodium 70 Sodium 70 e Sodium MG MG 70 MG [facility] No 1{table QD [facility] Aspirin 81 Aspirin 81 t} Aspirin 81 MG MG MG Vitamin D-3 Vitamin D-3 No 1{table QD Vitamin t} D-3 Calcium Calcium No 1{table QD Calcium t} Centrum - Centrum - No Centrum - Hydrocortis Hydrocortis No Hydrocorti one Acetate one Acetate sone 25 MG 25 MG Acetate 25 MG Vitamin D-3 Vitamin D-3 No 1{table QD Vitamin t} D-3 Centrum - Centrum - No Centrum - [facility] No 1{table QD [facility] Aspirin 81 Aspirin 81 t} Aspirin 81 MG MG MG Calcium Calcium No 1{table QD Calcium t} Calcium Calcium No 1{table QD Calcium t} Centrum - Centrum - No Centrum - Vitamin D-3 Vitamin D-3 No 1{table QD Vitamin t} D-3 [facility] No 1{table QD [facility] Aspirin 81 Aspirin 81 t} Aspirin 81 MG MG MG Immunizations Ordered Filled Immunization Date Status Comments Sour e Immunization Name Name Lidocaine Lidocaine 2020-11-17 Completed [facility] - 09:47:00 [facility] Lidocaine Lidocaine 2020-11-17 Completed [facility] - 09:47:00 [facility] Celestone Soluspan Celestone Soluspan 2020-11-17 Completed [facility] - (Betamethasone) (Betamethasone) 09:44:00 [facility] Celestone Soluspan Celestone Soluspan 2020-11-17 Completed [facility] - (Betamethasone) (Betamethasone) 09:44:00 [facility] Betamethasone Betamethasone 2019-10-02 Completed Common S pirit - Sodium Phosphate Sodium Phosphate 08:33:00 [facility] Betamethasone Betamethasone 2019-10-02 Completed Common S pirit - Sodium Phosphate Sodium Phosphate 08:33:00 [facility] LIDOCAINE HCL LIDOCAINE HCL 2019-10-02 Completed Common S pirit - 10MG/ML 10MG/ML 08:20:00 [facility] LIDOCAINE HCL LIDOCAINE HCL 2019-10-02 Completed Common S pirit - 10MG/ML 10MG/ML 08:20:00 [facility] Betamethasone Betamethasone 2019-04-14 Completed Common S pirit - Sodium Phosphate Sodium Phosphate 14:29:00 [facility] Betamethasone Betamethasone 2019-04-14 Completed Common S pirit - Sodium Phosphate Sodium Phosphate 14:29:00 [facility] LIDOCAINE HCL LIDOCAINE HCL 2019-04-14 Completed Common S pirit - 10MG/ML 10MG/ML 14:22:00 [facility] LIDOCAINE HCL LIDOCAINE HCL 2019-04-14 Completed Common S pirit - 10MG/ML 10MG/ML 14:22:00 [facility] Pneumococcal 20 Unknown Completed [facility] Conjugate, PCV20 [place] [facility] Branch Influenza High Dose Unknown Completed Unive rsity [facility] Pneumococcal 20 Unknown Completed Universit y of Conjugate, PCV20 [facility] dical (Prevnar 20) Branch Influenza High Dose [facility] Unknown Completed Univers[facility] of Conjugate, PCV20 [facility] dical (Prevnar 20) Branch Influenza High Dose Unknown Completed Unive rsity [facility] Pneumococcal 20 Unknown Completed Universit y of Conjugate, PCV20 [facility] dical (Prevnar 20) Branch Influenza High Dose Unknown [facility] 20 Unknown Completed Universit y of Conjugate, PCV20 [facility] dical (Prevnar 20) Branch Influenza High Dose Unknown Completed Unive rsity [facility] Pneumococcal 20 Unknown Completed Universit y of Conjugate, PCV20 [place] [facility]ical (Prevnar 20) Branch Influenza High Dose Unknown Completed Unive rsity of [facility] Pneumococcal 20 Unknown Completed Universit y of Conjugate, PCV20 [place] [facility]ical (Prevnar 20) Branch Influenza High Dose Unknown Completed Unive rsity of [facility] Pneumococcal 20 Unknown Completed Universit y of Conjugate, PCV20 [place] [facility] (Prevnar 20) Branch Influenza High Dose Unknown Completed Unive rsity of [facility] Pneumococcal 20 Unknown Completed Universit y of Conjugate, PCV20 [place] [facility] (Prevnar 20) Branch Influenza High Dose Unknown Completed Unive rsity of [facility] Pneumococcal 20 Unknown Completed Universit y of Conjugate, PCV20 [place] [facility] (Prevnar 20) Branch Influenza High Dose Unknown Completed Unive rsity of [facility] Pneumococcal 20 Unknown Completed Universit y of Conjugate, PCV20 [facility] dical (Prevnar 20) Branch Influenza High Dose Unknown [facility] Vital Signs Vital Name Observation Time Observation Value Comments Source BMI 2023-07-17 18:53:00 27.00 kg/m2 [facility] Oxygen saturation in 2023-07-17 18:53:00 97 /min University of Arterial blood by [facility] P[facility] oximetry Branch Systolic blood 2023-07-17 18:53:00 182 mm[Hg] Univer sity of pressure [facility] Diastolic blood 2023-07-17 18:53:00 117 mm[Hg] Unive rsity of [facility] Heart rate 2023-07-17 18:53:00 106 /min [facility] Respiratory rate 2023-07-17 18:53:00 17 /min [facility] height 2023-07-17 18:53:00 157.5 cm [facility] Body weight 2023-07-17 18:53:00 66.951 kg [facility] BMI 2023-07-17 18:53:00 27.00 kg/m2 [facility] Oxygen saturation in 2023-07-17 18:53:00 97 /min University of Arterial blood by [facility] Pulse oximetry Branch Systolic blood 2023-07-17 18:53:00 182 mm[Hg] Univer sity of pressure [facility] Diastolic blood 2023-07-17 18:53:00 117 mm[Hg] Unive rsity of [facility] Heart rate 2023-07-17 18:53:00 106 /min Universi ty [facility] Respiratory rate 2023-07-17 18:53:00 17 /min Univ ersity of [facility] Body height 2023-07-17 18:53:00 157.5 cm Universi ty [facility] Body weight 2023-07-17 18:53:00 66.951 kg [facility] height 2022-09-21 09:20:00 62.25 [in_i] [facility] weight 2022-09-21 09:20:00 148.8 [lb_av] [facility] temperature 2022-09-21 09:20:00 97.2 [degF] [facility] bmi 2022-09-21 09:20:00 26.99 kg/m2 [facility] oximetry 2022-09-21 09:20:00 95 % [facility] respiratory rate 2022-09-21 09:20:00 17 /min Comm on [facility] blood pressure 2022-09-21 09:20:00 135 mm[Hg] Common [facility] systolic [facility] blood pressure 2022-09-21 09:20:00 83 mm[Hg] Common [facility] - diastolic [facility] height 2022-08-23 09:00:00 62.25 [in_i] [facility] weight 2022-08-23 09:00:00 146.8 [lb_av] [facility] temperature 2022-08-23 09:00:00 97.3 [degF] [facility] bmi 2022-08-23 09:00:00 26.63 kg/m2 [facility] oximetry 2022-08-23 09:00:00 98 % [facility] respiratory rate 2022-08-23 09:00:00 16 /min Comm on [facility] blood pressure 2022-08-23 09:00:00 136 mm[Hg] Common [facility] - systolic [facility] blood pressure 2022-08-23 09:00:00 82 mm[Hg] [facility] - diastolic [facility] WEIGHT 2022-01-03 22:30:00 67.132 kg HEIGHT 2022-01-03 22:30:00 162.6 cm WEIGHT 2022-01-03 22:30:00 67.132 kg HEIGHT 2022-01-03 22:30:00 162.6 cm height 2021-08-01 08:00:00 62.25 [in_i] [facility] weight 2021-08-01 08:00:00 142 [lb_av] [facility] temperature 2021-08-01 08:00:00 97.3 [degF] [facility] bmi 2021-08-01 08:00:00 25.76 kg/m2 [facility] oximetry 2021-08-01 08:00:00 97 % [facility] respiratory rate 2021-08-01 08:00:00 16 /min Comm on [facility] blood pressure 2021-08-01 08:00:00 130 mm[Hg] [facility] - systolic [facility] blood pressure 2021-08-01 08:00:00 78 mm[Hg] [facility] - diastolic [facility] Systolic blood 2022-01-12 11:12:00 130 mm[Hg] [facility] Diastolic blood 2022-01-12 11:12:00 65 mm[Hg] [facility] Heart rate 2022-01-12 11:12:00 89 /min [facility] Body temperature 2022-01-12 11:12:00 36.72 Cecy [facility] Respiratory rate 2022-01-12 11:12:00 18 /min [facility] Oxygen saturation in 2022-01-12 11:12:00 97 /min [facility] Arterial blood by Medical Ce nter Pulse oximetry Body height 2022-01-03 22:30:00 162.6 cm [facility] Body weight 2022-01-03 22:30:00 67.132 kg [facility] BMI 2022-01-03 22:30:00 25.40 kg/m2 [facility] Procedures Procedure Date / Time Performing Clinician Source Performed REFERRAL- 2023-08-26 06:01:00 Doctor Unassigned, No [facility] REQUEST/RESPONSE Name Medical Branch AORTOILIAC DUPLEX - BY 2023-08-15 15:01:00 [facility] LOWER EXTREMITY ARTERIAL 2023-08-15 14:00:00 Mariam Mendieta [facility] DUPLEX BILATERAL - BY [facility] VASCULAR LAB ROMA EXTREMITY STRESS - BY 2023-07-25 15:00:00 [facility] HB ECG ROUTINE & RHYTHM 2023-07-17 18:58:24 Ike [facility] [place] HB ECG ROUTINE & RHYTHM 2023-07-17 18:58:24 [facility] [place] CONSENT/REFUSAL FOR 2023-07-17 18:31:22 [facility], [facility] Name Medical Branch HC VENOUS DOPPLER EXT UNI 2022-01-11 13:23:00 Christianne Rahman I [facility] SARS-COV2/RT-PCR ([facility] & 2022-01-11 12:06:00 Haroldo Salazar [facility] REF LABS) Center CBC W/PLT COUNT & AUTO 2022-01-08 03:45:00 [facility] DIFFERENTIAL Center IRON, TIBC, % SAT. 2022-01-08 03:45:00 [facility] (WITHOUT FERRITIN) Center FERRITIN 2022-01-08 03:45:00 [facility] W/[facility]T COUNT & AUTO 2022-01-08 03:45:00 [facility] DIFFERENTIAL Center BASIC METABOLIC PANEL 2022-01-07 04:58:00 NalamNeelima Marilin [facility] CBC W/PLT COUNT & AUTO 2022-01-07 04:58:00 [facility] CBC W/PLT COUNT & AUTO 2022-01-07 04:58:00 [facility] Neelima [facility] DIFFERENTIAL Center FL FLUORO NON-SPECIFIC UP 2022-01-04 19:00:00 ROMA Stoner I [facility] TO 1 HOUR [facility] INSERTION, INTRAMEDULLARY 2022-01-04 17:11:00 Georgiana I [facility] SACHA, TIBIA [facility] SARS-COV2/RT-PCR ([facility] & 2022-01-04 11:18:00 Haroldo Salazar [facility] REF LABS) Center ECG 12-LEAD 2022-01-04 10:18:16 Richard Sánchez [facility] XR LEG / TIBIA AND FIBULA 2022-01-04 08:16:00 ROMA Stoner I [facility] 2 VIEWS LEFT [facility] CBC W/PLT COUNT & AUTO 2022-01-04 05:09:00 Maite Proctor [facility] BASIC METABOLIC PANEL 2022-01-04 05:09:00 Maite Proctor [facility] PT/APTT 2022-01-04 05:09:00 Maite Proctor [facility] CBC W/PLT COUNT & AUTO 2022-01-04 05:09:00 Maite Proctor [facility] ABORH, MANUAL 2022-01-04 00:34:00 Elena Marinelli [facility] TYPE AND SCREEN, 2022-01-04 00:07:00 Georgiana [facility] AUTOMATED [facility] Plan of Care Planned Activity Planned Date Details Comments Source Future Scheduled 2023-06-14 INFLUENZA VACCINE [facility] Test 00:00:00 (Season Ended) [code = [facility] INFLUENZA VACCINE (Season Ended)] Future Scheduled 2023-06-[address] [facility] Test 00:00:00 (Season Ended) [code = [facility] Influenza Vaccine (Season Ended)] Future Scheduled 2023-06-14 Influenza Vaccine (#1) [facility] 00:00:00 [code = Influenza Medical Ce nter Vaccine (#1)] Future Scheduled 2023-01-[address] [facility] Test 00:00:00 Counseling and Medical Cente r Screening (12+) [code = Tobacco Cessation Counseling and Screening (12+)] Future Scheduled 2023-01-[address] [facility] Test 00:00:00 WELLNESS (YEAR 2 or Medical Center FIRST YEAR if no IPPE) [code = MEDICARE ANNUAL WELLNESS (YEAR 2 or FIRST YEAR if no IPPE)] Future Scheduled 2023-01-[address] [facility] Test 00:00:00 Counseling and Medical Cente r Screening (12+) [code = Tobacco Cessation Counseling and Screening (12+)] Future Scheduled 2023-01-[address] [facility] Test 00:00:00 WELLNESS (YEAR 2 or Medical Center FIRST YEAR if no IPPE) [code = MEDICARE ANNUAL WELLNESS (YEAR 2 or FIRST YEAR if no IPPE)] Future Scheduled 2023-01-[address] [facility] Test 00:00:00 Counseling and Medical Cente r Screening (12+) [code = Tobacco Cessation Counseling and Screening (12+)] Future Scheduled 2023-01-[address] [facility] Test 00:00:00 WELLNESS (YEAR 2 or Medical Center FIRST YEAR if no IPPE) [code = MEDICARE ANNUAL WELLNESS (YEAR 2 or FIRST YEAR if no IPPE)] Future Scheduled 2023-01-[address] [facility] Test 00:00:00 Counseling and Medical Cente r Screening (12+) [code = Tobacco Cessation Counseling and Screening (12+)] Future Scheduled 2022-10-[address] [facility] Test 00:00:00 (12+) [code = Medical Center DEPRESSION SCREENING (12+)] Future Scheduled 2022-10-14 FALLS RISK SCREENING [facility] Test 00:00:00 [code = FALLS RISK Medical C enter SCREENING] Future Scheduled 2022-10-[address] [facility] Test 00:00:00 (12+) [code = Medical Center DEPRESSION SCREENING (12+)] Future Scheduled 2022-10-14 FALLS RISK SCREENING [facility] Test 00:00:00 [code = FALLS RISK Medical C enter SCREENING] Future Scheduled 2022-10-[address] [facility] Test 00:00:00 (12+) [code = Medical Center DEPRESSION SCREENING (12+)] Future Scheduled 2022-10-14 FALLS RISK SCREENING [facility] Test 00:00:00 [code = FALLS RISK Medical C enter SCREENING] Future Scheduled 2022-10-[address] [facility] Test 00:00:00 (12+) [code = Medical Center DEPRESSION SCREENING (12+)] Future Scheduled 2022-10-14 FALLS RISK SCREENING [facility] Test 00:00:00 [code = FALLS RISK Medical C enter SCREENING] Future Scheduled 2022-06-14 INFLUENZA VACCINE (#1) [facility] 00:00:00 [code = INFLUENZA Medical Ce nter VACCINE (#1)] Future Scheduled 2022-06-14 INFLUENZA VACCINE (#1) [facility] 00:00:00 [code = INFLUENZA Medical Ce nter VACCINE (#1)] Future Scheduled 2022-06-14 INFLUENZA VACCINE (#1) [facility] 00:00:00 [code = INFLUENZA Medical Ce nter VACCINE (#1)] Future Scheduled 2022-01-02 Medicare IPPE (WELCOME [facility] 00:00:00 TO MEDICARE) [code = Medical Center Medicare IPPE (WELCOME TO MEDICARE)] Future Scheduled 2022-01-02 Medicare IPPE (WELCOME [facility] 00:00:00 TO MEDICARE) [code = Medical Center Medicare IPPE (WELCOME TO MEDICARE)] Future Scheduled 2022-01-02 Medicare IPPE (WELCOME [facility] Test 00:00:00 TO MEDICARE) [code = Medical Center Medicare IPPE (WELCOME TO MEDICARE)] Future Scheduled 2021-10-[address] [facility] Test 00:00:00 (12+) [code = Medical Center DEPRESSION SCREENING (12+)] Future Scheduled 2021-10-14 FALLS RISK SCREENING [facility] Test 00:00:00 [code = FALLS RISK Medical C enter SCREENING] Future Scheduled 2021-10-[address] [facility] Test 00:00:00 (12+) [code = Medical Center DEPRESSION SCREENING (12+)] Future Scheduled 2021-10-14 FALLS RISK SCREENING [facility] Test 00:00:00 [code = FALLS RISK Medical C enter SCREENING] Future Scheduled 2000 SHINGLES VACCINES ([address] [facility] Test 00:00[facility]00 [facility] Future Scheduled 2000 SHINGLES VACCINES ([address] [facility] Test 00:00:00 2) [code = SHINGLES [facility] VACCINES (1 of 2)] Future Scheduled 2000 SHINGLES VACCINES ([address] [facility] Test 00:00:00 2) [code = SHINGLES [facility] VACCINES (1 of 2)] Future Scheduled 2000 SHINGLES VACCINES ([address] [facility] Test 00:00:00 2) [code = SHINGLES [facility] VACCINES (1 of 2)] Future Scheduled 2000 SHINGLES VACCINES ([address] [facility] Test 00:00:00 2) [code = SHINGLES [facility] VACCINES (1 of 2)] Future Scheduled 2000 SHINGLES VACCINES ([address] [facility] Test 00:00:00 2) [code = SHINGLES [facility] VACCINES (1 of 2)] Future Scheduled 1969 DTAP/TDAP/TD [facility]ACCINES [facility] 00:00:00 (1 - Tdap) [code = Medical C enter DTAP/TDAP/TD VACCINES (1 - Tdap)] Future Scheduled 1969 DTAP/TDAP/TD VACCINES [facility] 00:00:00 (1 - Tdap) [code = Medical C enter DTAP/TDAP/TD VACCINES (1 - Tdap)] Future Scheduled 1969 DTAP/TDAP/TD VACCINES [facility] 00:00:00 (1 - Tdap) [code = Medical C enter DTAP/TDAP/TD VACCINES (1 - Tdap)] Future Scheduled 1969 DTAP/TDAP/TD VACCINES [facility] 00:00:00 (1 - Tdap) [code = Medical C enter DTAP/TDAP/TD VACCINES (1 - Tdap)] Future Scheduled 1969 DTAP/TDAP/TD VACCINES [facility] 00:00:00 (1 - Tdap) [code = Medical C enter DTAP/TDAP/TD VACCINES (1 - Tdap)] Future Scheduled 1969 DTAP/TDAP/TD VACCINES [facility] 00:00:00 (1 - Tdap) [code = Medical C enter DTAP/TDAP/TD VACCINES (1 - Tdap)] Future Scheduled 1968 HEPATITIS C [facility]CRE[facility]ING [facility]:00:00 [code = HEPATITIS C Medical Center SCREENING] Future Scheduled 1968 HEPATITIS C [facility]CRE[facility]ING [facility] 00:00:00 [code = HEPATITIS C Medical Center SCREENING] Future Scheduled 1968 HEPATITIS C [facility]CRE[facility]ING [facility] 00:00:00 [code = HEPATITIS C Medical Center SCREENING] Future Scheduled 1968 HEPATITIS C [facility]CRE[facility]ING [facility] 00:00:00 [code = HEPATITIS C Medical Center SCREENING] Future Scheduled 1968 HEPATITIS C [facility]CRE[facility]ING [facility] 00:00:00 [code = HEPATITIS C Medical Center SCREENING] Future Scheduled 1968 HEPATITIS C [facility]CRE[facility] 00:00:00 [code = HEPATITIS C Medical Center SCREENING] Future Scheduled 1956 PNEUMOCOCCAL 65+ YRS ([address] [facility] Test 00:00:00 - PCV) [code = Medical Cente r PNEUMOCOCCAL 65+ YRS (1 - PCV)] Future Scheduled 1956 PNEUMOCOCCAL 65+ YRS ([address] [facility] Test 00:00:00 - PCV) [code = Medical Cente r PNEUMOCOCCAL 65+ YRS (1 - PCV)] Future Scheduled 1956 PNEUMOCOCCAL 65+ YRS ([address] [facility] Test 00:00:00 - PCV) [code = Medical Cente r PNEUMOCOCCAL 65+ YRS (1 - PCV)] Future Scheduled 1956 PNEUMOCOCCAL 65+ YRS ([address] [facility] Test 00:00:00 - PCV) [code = Medical Cente r PNEUMOCOCCAL 65+ YRS (1 - PCV)] Future Scheduled 1956 PNEUMOCOCCAL 65+ YRS ([address] [facility] Test 00:00:00 - PCV) [code = Medical Cente r PNEUMOCOCCAL 65+ YRS (1 - PCV)] Future Scheduled 1956 PNEUMOCOCCAL 65+ YRS ([address] [facility] Test 00:00:00 - PCV) [code = Medical Cente r PNEUMOCOCCAL 65+ YRS (1 - PCV)] Future Scheduled 1951-07-02 COVID-19 VACCINE (#1) [facility] 00:[facility]:00 [code = COVID-[address] VACCINE (#1)] Future Scheduled 1951-07-02 COVID-19 VACCINE (#1) [facility] 00:00:00 [code = COVID-[address] VACCINE (#1)] Future Scheduled 1951-07-02 COVID-19 VACCINE (#1) [facility] 00:00:00 [code = COVID-[address] VACCINE (#1)] Future Scheduled 1951-07-02 COVID-19 VACCINE (#1) [facility] 00:00:00 [code = COVID-[address] VACCINE (#1)] Future Scheduled 1951-07-02 COVID-19 VACCINE (#1) [facility] 00:00:00 [code = COVID-[address] VACCINE (#1)] Future Scheduled 1951-07-02 COVID-19 VACCINE (#1) [facility] 00:00:00 [code = COVID-[address] VACCINE (#1)] Future Scheduled 1950 Screening for malignant [facility] Test 00:00:00 neoplasm of breast Medical C enter (procedure) [code = 447822746] Future Scheduled 1950 CT Colonography (combo) [facility] Test 00:00:00 [code = CT Colonography [facility] (combo)] Future Scheduled 1950 Screening for malignant [facility] Test 00:00:00 neoplasm of colon Medical Ce nter (procedure) [code = 016250812] Future Scheduled 1950 Screening for malignant [facility] Test 00:00:00 neoplasm of colon Medical Ce nter (procedure) [code = 119413602] Future Scheduled 1950 DXA SCAN [code = DXA [facility] Test 00:00:00 SCAN] Medical Center Future Scheduled 1950 Screening for malignant [facility] Test 00:00:00 neoplasm of colon Medical Ce nter (procedure) [code = 448282934] Future Scheduled 1950 Screening for malignant [facility] Test 00:00:00 neoplasm of colon Medical Ce nter (procedure) [code = 628286916] Future Scheduled 1950 Sigmoidoscopy [code = [facility] Sigmoidoscopy] [facility] Future Scheduled 1950 Screening for malignant [facility] Test 00:00:00 neoplasm of breast Medical C enter (procedure) [code = 644585724] Future Scheduled 1950 CT Colonography (combo) [facility] Test 00:00:00 [code = CT Colonography [facility] (combo)] Future Scheduled 1950 Screening for malignant [facility] Test 00:00:00 neoplasm of colon Medical Ce nter (procedure) [code = 211976841] Future Scheduled 1950 Screening for malignant [facility] Test 00:00:00 neoplasm of colon Medical Ce nter (procedure) [code = 377918229] Future Scheduled 1950 DXA SCAN [code = DXA [facility] Test 00:00:00 SCAN] [facility] Future Scheduled 1950 Screening for malignant [facility] Test 00:00:00 neoplasm of colon Medical Ce nter (procedure) [code = 685481120] Future Scheduled 1950 Screening for malignant [facility] Test 00:00:00 neoplasm of colon Medical Ce nter (procedure) [code = 860827495] Future Scheduled 1950 Sigmoidoscopy [code = [facility] Sigmoidoscopy] [facility] r Future Scheduled 1950 Screening for malignant [facility] Test 00:00:00 neoplasm of breast Medical C enter (procedure) [code = 620684071] Future Scheduled 1950 CT Colonography (combo) [facility] Test 00:00:00 [code = CT Colonography [facility] (combo)] Future Scheduled 1950 Screening for malignant [facility] Test 00:00:00 neoplasm of colon Medical Ce nter (procedure) [code = 949051579] Future Scheduled 1950 Screening for malignant [facility] Test 00:00:00 neoplasm of colon Medical Ce nter (procedure) [code = 815699538] Future Scheduled 1950 DXA SCAN [code = DXA [facility] Test 00:00:00 SCAN] [facility] Future Scheduled 1950 Screening for malignant [facility] Test 00:00:00 neoplasm of colon Medical Ce nter (procedure) [code = 875448539] Future Scheduled 1950 Screening for malignant [facility] Test 00:00:00 neoplasm of colon Medical Ce nter (procedure) [code = 126558296] Future Scheduled 1950 Sigmoidoscopy [code = [facility] 00:[facility] Sigmoidoscopy] [facility] Future Scheduled 1950 Screening for malignant [facility] Test 00:00:00 neoplasm of breast Medical C enter (procedure) [code = 094861135] Future Scheduled 1950 CT Colonography (combo) [facility] Test 00:00:00 [code = CT Colonography [facility] (combo)] Future Scheduled 1950 Screening for malignant [facility] Test 00:00:00 neoplasm of colon Medical Ce nter (procedure) [code = 039777389] Future Scheduled 1950 Screening for malignant [facility] Test 00:00:00 neoplasm of colon Medical Ce nter (procedure) [code = 429198029] Future Scheduled 1950 DXA SCAN [code = DXA [facility] Test 00:00:00 SCAN] [facility] Future Scheduled 1950 Screening for malignant [facility] Test 00:00:00 neoplasm of colon Medical Ce nter (procedure) [code = 183450185] Future Scheduled 1950 Screening for malignant [facility] Test 00:00:00 neoplasm of colon Medical Ce nter (procedure) [code = 841349656] Future Scheduled 1950 Sigmoidoscopy [code = [facility] 1950 Screening for malignant [facility] Test 00:00:00 neoplasm of breast Medical C enter (procedure) [code = 842874301] Future Scheduled 1950 CT Colonography (combo) [facility] Test 00:00:00 [code = CT Colonography [facility] (combo)] Future Scheduled 1950 Screening for malignant [facility] Test 00:00:00 neoplasm of colon Medical Ce nter (procedure) [code = 199441847] Future Scheduled 1950 Screening for malignant [facility] Test 00:00:00 neoplasm of colon Medical Ce nter (procedure) [code = 460597074] Future Scheduled 1950 DXA SCAN [code = DXA [facility] Test 00:00:00 SCAN] [facility] Future Scheduled 1950 Screening for malignant [facility] Test 00:00:00 neoplasm of colon Medical Ce nter (procedure) [code = 509186529] Future Scheduled 1950 Screening for malignant [facility] Test 00:00:00 neoplasm of colon Medical Ce nter (procedure) [code = 147925337] Future Scheduled 1950 Sigmoidoscopy [code = [facility] 00:00:[facility] Sigmoidoscopy] [facility] Future Scheduled 1950 Screening for malignant [facility] Test 00:00:00 neoplasm of breast Medical C enter (procedure) [code = 054911308] Future Scheduled 1950 CT Colonography (combo) [facility] Test 00:00:00 [code = CT Colonography [facility] (combo)] Future Scheduled 1950 Screening for malignant [facility] Test 00:00:00 neoplasm of colon Medical Ce nter (procedure) [code = 900761722] Future Scheduled 1950 Screening for malignant [facility] Test 00:00:00 neoplasm of colon Medical Ce nter (procedure) [code = 029403166] Future Scheduled 1950 DXA SCAN [code = DXA [facility] Test 00:00:00 SCAN] [facility] Future Scheduled 1950 Screening for malignant [facility] Test 00:00:00 neoplasm of colon Medical Ce nter (procedure) [code = 526542787] Future Scheduled 1950 Screening for malignant [facility] Test 00:00:00 neoplasm of colon Medical Ce nter (procedure) [code = 890357390] Future Scheduled 1950 Sigmoidoscopy [code = [facility] 00:00:00 Sigmoidoscopy] [facility] [place] r Encounters Start End Encounter Admission Attending Care Care Encounter Source Date/Time Date/Time Type Type Clinicians Facility Department ID 2023-01-15 Outpatient Miller, STLMLC STLMLC [id number] Common 15:43:01 Ana Lilia 03371 [facility] 2022-09-19 Outpatient Burton, Na STLMLC STLMLC [id number] Common 08:02:00 93877 [facility] 2022-04-10 Outpatient Burton, Na STLMLC STLMLC [id number] 2 Common 09:39:01 [facility] 2021-11-08 Outpatient Burton, Na STLMLC STLMLC [id number] 2 Common 12:52:21 01412 [facility] 2021-11-08 Outpatient Burton, Na STLMLC STLMLC [id number] 2 Common 12:36:26 71244 [facility] 2021-11-08 Outpatient Burton, Na STLMLC STLMLC [id number] Common 12:35:19 [id number] [facility] 2021-11-08 Outpatient STLMLC STLMLC [id number] Common 12:34:09 [id number] [facility] 2021-11-08 Outpatient STLMLC STLMLC [id number] Common 12:29:16 [id number] [facility] 2021-11-08 Outpatient STLMLC STLMLC [id number] Common 12:18:22 86059 [facility] 2021-11-08 Outpatient STLMLC STLMLC [id number] Common 12:17:42 [id number] [facility] 2023-09-02 2023-09-02 Outpatient R ALMA DELIA PALMER [facility] [id number] Univers 10:15:00 10:15:00 ALMA DELIA PALMER of [facility] 2023-08-26 2023-08-26 Orders Doctor JENARO 1.2.840.114 [id number] Univers 00:00:00 00:00:00 Only Unassigned, STEPHANE 350.1.13.10 ity of [place] [facility] 4.2.7.2.686 Fabricio as [id number] [facility] [address] 2023-08-16 2023-08-16 Telephone [facility] [id number] [id number] Univers 00:00:00 00:00:00 Mariam WAYNE 350.1.13.10 [place] [id number] [place] [id number] Branch [facility] 2023-08-15 2023-08-15 [facility] 1.2.840.114 [id number] Univers 07:32:14 23:59:00 Encounter Mariam WAYNE 350.1.13.10 [place] [id number] [facility] [address] [place] 2023-08-15 2023-08-15 [facility] 1.2.840.114 [id number] Univers 07:31:50 07:31:50 Encounter Mariam WAYNE 350.1.13.10 [place] [id number] [address] 2023-08-15 2023-08-15 Outpatient R [facility] [id number] Univers 07:31:50 07:31:50 [place] ity o f [facility] 2023-08-12 2023-08-12 Travel 1.2.840.1 [id number] [id number] Univers 00:00:00 00:00:00 [id number] 350.1.13.41 ity of 3[place]412.2.7 [place] .[id number] 084.8 .8 [facility] 2023-08-08 2023-08-08 Outpatient R [facility] [id number] Univers 00:00:00 00:00:00 MARIAM connory o f [facility] 2023-07-26 2023-07-26 Telephone [facility] [id number] [id number] Univers 00:00:00 00:00:00 Mariam WAYNE 350.1.13.10 [place] [id number] [address] 2023-07-25 2023-07-25 Outpatient R [facility] [id number] Univers 08:37:24 23:59:00 MARIAM connory o f [facility] 2023-07-25 2023-07-25 [facility] 1.2.840.114 [id number] Univers 08:37:24 23:59:00 Encounter Mariam WAYNE 350.1.13.10 it[place] [id number] [facility] [address] [place] 2023-07-17 2023-07-17 Office [facility] 1.2.840.114 [id number] Univers 13:40:00 14:53:51 Visit Mariam WAYNE 350.1.13.10 it[place] [id number] Dc dicor NAL 9 [employer] 2023-07-17 2023-07-17 Outpatient R [facility] [id number] Univers 13:40:00 14:53:51 MARIAM batista o f [facility] 2023-07-17 2023-07-17 Orders Doctor JENARO 1.2.840.114 [id number] Univers 00:00:00 00:00:00 Only Unassigned, STEPHANE 350.1.13.10 ity of [place] [facility] 4.2.7.2.686 Fabricio as [id number] [facility] [address] [place] 2022-09-21 2022-09-[address] [facility] [id number] Co mmon 00:00:00 00:00:00 VISIT EST Spir it PT LEVEL 3 - [facility] 2022-08-23 2022-08-23 OFFICE STLMLC STLMLC [id number] Co mmon 00:00:00 00:00:00 VISIT EST Spir it PT LEVEL 3 - [facility] 2022-08-21 2022-08-21 (TEL) STLMLC STLMLC [id number] Co mmon 00:00:00 00:00:00 [facility] 2022-04-11 2022-04-11 OFFICE STLMLC STLMLC [id number] Co mmon 00:00:00 00:00:00 VISIT EST Spir it PT LEVEL 3 - [facility] 2022-04-11 2022-04-11 (TEL) STLMLC STLMLC [id number] Co mmon 00:00:00 00:00:00 [facility] 2022-04-09 2022-04-09 (TEL) STLMLC STLMLC [id number] Co mmon 00:00:00 00:00:00 [facility] 2022-02-28 2022-02-28 OL DIG E/M STLMLC STLC [id number] Common 00:00:00 00:00:00 [facility] 11-20 Spir it MIN [facility] 2022-01-03 2022-01-12 Hospital Maite Mcintosh [facility] [id number] 22:15:00 16:26:00 Encounter Christianne Rahman [facility] 2022-01-03 2022-01-12 Inpatient UR LIYAH, [facility] Orthopaedic [id number] SLE 22:15:00 16:26:00 CHRISTIANNE 2022-01-04 2022-01-04 Anesthesia Roshni Ralph [facility] [id number] [facility] 17:26:00 22:08:00 Event Nasrin Hernandez [facility] 2022-01-04 2022-01-04 Surgery Georgiana [facility] [id number] 16:00:00 18:35:00 Lorenzo [facility] 2022-01-03 2022-01-03 Travel [facility] [id number] [facility] 00:[facility]00 00:00:00 [facility] 2021-08-01 2021-08-01 OFFICE STLMLC STLMLC [id number] Co mmon 00:00:00 00:00:00 VISIT EST Spir it PT LEVEL 3 - [facility] 2021-04-22 2021-04-22 (TEL) STLMLC STLMLC [id number] Co mmon 00:00:00 00:00:00 [facility] 2021-02-03 2021-02-03 Outpatient STLMLC STLMLC [id number] Common 00:00:00 00:00:00 [facility] 2021-01-27 2021-01-27 Outpatient STLMLC STLMLC [id number] Common 00:00:00 00:00:00 [facility] 2021-01-27 2021-01-27 Outpatient STLMLC STLMLC [id number] Common 00:00:00 00:00:00 [facility] 2021-01-27 2021-01-27 Outpatient STLMLC STLMLC [id number] Common 00:00:00 00:00:00 [facility] 2020-12-15 2020-12-15 Outpatient STLMLC STLMLC [id number] Common 00:00:00 00:00:00 [facility] 2020-12-13 2020-12-13 Outpatient STLMLC STLMLC [id number] Common 00:00:00 00:00:00 [facility] 2020-11-17 2020-11-17 Outpatient STLMLC STLMLC [id number] Common 00:00:00 00:00:00 [facility] 2020-11-09 2020-11-09 Outpatient STLMLC STLMLC [id number] Common 00:00:00 00:00:00 [facility] 2020-10-18 2020-10-18 Outpatient STLMLC STLMLC [id number] Common 00:00:00 00:00:00 [facility] 2019-12-02 2019-12-[address] [facility] [id number] [facility] 07:23:00 07:23:00 _A_ [id number] Family Practic e 2019-10-02 2019-10-02 Outpatient Gabino Heller [id number] Common 08:15:00 08:15:00 [facility] 2019-09-03 2019-09-03 Outpatient Gabino Heller [id number] Common 13:45:00 13:45:00 [facility] - [facility] 2019-06-12 2019-06-12 Outpatient Gabino Heller [id number] Common 08:00:00 08:00:00 t [facility] [address] [facility] Results Test Description Test Time Test Comments Results Result Comments Source SARS-CoV2/RT-PCR (Asymptomatic ONLY) 2022-01-11 17:02:00 Test Item Value Reference Range Interpretation Comme nts SARS-COV2/RT-PCR (test Negative Negative The S ARS-CoV-2 target code = 95153-7) nucleic acid s are not detected in thi s specimen. Negat woo results do not preclude SARS-CoV-2 infe ction and should not be u sed as the sole basis for patient management deci sions. Negative result s must be combined with c linical observations, p atient history, and epidemiological information. A false negative result may occur if a specimen i s improperly rosie ected, transported or handled. This SARS CoV-2 test is a rapid, real-sean e RT-PCR test intended f or the qualitative det ection of nucleic acid fr om SARS-CoV-2 in a nasopharyngeal swab specimen collec kd from individuals joe pected of COVID-19 by the [employer] ider. ADONIS (test code = ADONIS) This test has been authorized by FDA under an EUA for use by authorized laboratories. This test is only authorized for the duration of the declaration that circumstances exist justifying the authorization of emergency use of in vitro diagnostic tests for detection and/or diagnosis of COVID-19 under Section 564(b)(1) of the Federal Food, Drug and Cosmetic Act, 21 U.S.C. 360bbb-3(b)(1), unless the authorization is terminated or revoked sooner. Fact Sheet for Healthcare Providers: https://www.[employer] /Documents/Xpert%20Xpre ss%20SARS%20CoV-2/Fact% 20Sheets/302-3802%20SAR S-COV-2%20HEALTHCARE%20 PROVIDERS%20FACT%20SHEE T.pdf Fact Sheet for Healthcare Patients: https://www.[employer] /Documents/Xpert%20Xpre ss%20SARS%20CoV-2/Fact% 20Sheets/302-3801%20SAR S-COV-2%20PATIENT%20FAC T%20SHEET.pdf Lab Interpretation (test Normal code = 13066-7) [facility]2022-01-11 17:02:00 Test Item Value Reference Interpretation Comments Range SARS-COV2/RT-PCR Negative Negative The SARS-Co V-2 (test code = target nucleic 44996-3) acids are not detected in thi s specimen. Negat woo results do not preclude SARS-C oV-2 infection and should not be u sed as the sole bas is for patient management decisions. Nega tive results must be combined with clinical observations, patient history , and epidemiolog ical information. A false negative result may occu r if a specimen is improperly collected, transported or handled. This S ARS CoV-2 test is a rapid, real-sean e RT-PCR test intended for th e qualitative detection of nucleic acid fr om SARS-CoV-2 in a [facility] from individual s suspected of COVID-19 by the ir healthcare provider. ADONIS (test code = This test has been ADONIS) authorized by FDA under an EUA for use by authorized laboratories. This test is only authorized for the duration of the declaration that circumstances exist justifying the authorization of emergency use of in vitro diagnostic tests for detection and/or diagnosis of COVID-19 under Section 564(b)(1) of the Federal Food, Drug and Cosmetic Act, 21 U.S.C. 360bbb-3(b)(1), unless the authorization is terminated or revoked sooner. Fact Sheet for Healthcare Providers: https://www.[employer]/Documents/Xp ert%20Xpress%20SAR S%20CoV-2/Fact%20S heets/302-3802%20S ARS-COV-2%20HEALTH CARE%20PROVIDERS%2 0FACT%20SHEET.pdf Fact Sheet for Healthcare Patients: https://www.[employer]/Documents/Xp ert%20Xpress%20SAR S%20CoV-2/Fact%20S heets/302-3801%20S ARS-COV-2%20PATIEN T%20FACT%20SHEET.p df Lab Interpretation Normal (test code = 67824-8) [facility]2022-01-11 17:02:00 Test Item Value Reference Interpretation Comments Range SARS-COV2/RT-PCR Negative Negative The SARS-Co V-2 (test code = target nucleic 35708-5) acids are not detected in thi s specimen. Negat woo results do not preclude SARS-C oV-2 infection and should not be u sed as the sole bas is for patient management decisions. Nega tive results must be combined with clinical observations, patient history , and epidemiolog ical information. A false negative result may occu r if a specimen is improperly collected, transported or handled. This S ARS CoV-2 test is a rapid, real-sean e RT-PCR test intended for th e qualitative detection of nucleic acid fr om SARS-CoV-2 in a nasopharyngeal swab specimen colle kd from individual s suspected of COVID-19 by the ir healthcare provider. ADONIS (test code = This test has been ADONIS) authorized by FDA under an EUA for use by authorized laboratories. This test is only authorized for the duration of the declaration that circumstances exist justifying the authorization of emergency use of in vitro diagnostic tests for detection and/or diagnosis of COVID-19 under Section 564(b)(1) of the Federal Food, Drug and Cosmetic Act, 21 U.S.C. 360bbb-3(b)(1), unless the authorization is terminated or revoked sooner. Fact Sheet for Healthcare Providers: https://www.[employer]/Documents/Xp ert%20Xpress%20SAR S%20CoV-2/Fact%20S heets/302-3802%20S ARS-COV-2%20HEALTH CARE%20PROVIDERS%2 0FACT%20SHEET.pdf Fact Sheet for Healthcare Patients: https://www.[employer]/Documents/Xp ert%20Xpress%20SAR S%20CoV-2/Fact%20S heets/302-3801%20S ARS-COV-2%20PATIEN T%20FACT%20SHEET.p df Lab Interpretation Normal (test code = 88503-2) [facility])2022-01-11 17:02:00 Test Item Value Reference Range Interpretation Comments SARS-COV2/RT-PCR Negative Negative The SARS-Co V-2 target (test code = nucleic acids a re not 9081153) detected in thi s specimen. Negative result s do not preclude SARS-C oV-2 infection and s hould not be used as the kandace e basis for patient managem ent decisions. Nega tive results must be combine d with clinical observ ations, patient history , and epidemiological information. A false negativ e result may occur if a spec imen is improperly rosie ected, transported or handled. This SARS CoV-2 test is a rapid, real-time RT-PC R test intended for th e qualitative detection of nu cleic acid from SARS-CoV-2 in a nasopharyngeal swab specimen collected from individuals suspected of CO VID-19 by their healthcar e provider. This test has been authorized by FDA under an EUA for use by authorized laboratories. This test is only authorized for the duration of the declaration that circumstances exist justifying the authorization of emergency use of in vitro diagnostic tests for detection and/or diagnosis of COVID-19 under Section 564(b)(1) of the Federal Food, Drug and Cosmetic Act, 21 U.S.C. 360bbb-3(b)(1), unless the authorization is terminated or revoked sooner. Fact Sheet for Healthcare Providers: https://www.[employer]/Documents/Xpert%20Xpress%20SARS%20CoV-2/Fact%20Sheets/302-3802%27FHNZ-BXA-3%20 HEALTHCARE%20PROVIDERS%20FACT%20SHEET.pdf Fact Sheet for Healthcare Patients: https://www.[employer]/Documents/Xpert%20Xp ress%20SARS%20CoV-2/Fact%20Sheets/302-3801%20IGJD-WMH-1%20PATIENT%20FACT%20SHEET .pdfVenous doppler arm, [id number] 15:23:30Ejection FractionSLEH ECHO HEARTLAB [facility] 2022-01-11 15:23:30Ejection FractionSLEH [facility] [id number] 15:23:30Ejection FractionSLEH ECHO [facility] 2022-[facility] 04:32:18 Test Item Value Reference Range Interpretation Comments Ferritin (test code = 265.68 ng/mL 5.00-275.00 2276-4) ADONIS (test code = ADONIS) Security Alarm Installer ID - BO M Lab Interpretation (test Normal code = 54636-7) [facility] 04:32:18 Test Item Value Reference Range Interpretation Comments Ferritin (test code = 265.68 ng/mL 5.00-275.00 2276-4) ADONIS (test code = ADONIS) Security Alarm Installer ID - BO M Lab Interpretation (test Normal code = 70317-2) [facility] 04:32:18 Test Item Value Reference Range Interpretation Comments Ferritin (test code = 265.68 ng/mL 5.00-275.00 2276-4) ADONIS (test code = ADONIS) Security Alarm Installer ID - BO M Lab Interpretation (test Normal code = 09652-7) [facility] 04:32:18 Test Item Value Reference Range Interpretation Comments FERRITIN (BEAKER) (test code = 265.68 ng/mL 5.00-275.00 361) Security Alarm Installer ALTAF Shea, TIBC, % sat. (without ferritin)2022-01-08 04:12:15 Test Item Value Reference Range Interpretation Comments Iron (test code = 2498-4) 21.0 ug/dL 40.0-160.0 L TIBC (test code = 2500-7) 211 ug/dL 250-450 L Iron % Saturation (test 10 % 20-55 L code = 2502-3) ADONIS (test code = ADONIS) Security Alarm Installer ID - BO Abernathy Lab Interpretation (test Abnormal code = 02347-3) [facility], TIBC, % sat. (without ferritin)2022-01-08 04:12:15 Test Item Value Reference Range Interpretation Comments Iron (test code = 2498-4) 21.0 ug/dL 40.0-160.0 L TIBC (test code = 2500-7) 211 ug/dL 250-450 L Iron % Saturation (test 10 % 20-55 L code = 2502-3) ADONIS (test code = ADONIS) Security Alarm Installer ID - BO Abernathy Lab Interpretation (test Abnormal code = 86289-0) [facility] (without ferritin)2022-01-08 04:12:15 Test Item Value Reference Range Interpretation Comments Iron (test code = 2498-4) 21.0 ug/dL 40.0-160.0 L TIBC (test code = 2500-7) 211 ug/dL 250-450 L Iron % Saturation (test 10 % 20-55 L code = 2502-3) ADONIS (test code = ADONIS) Security Alarm Installer ID - BO Abernathy Lab Interpretation (test Abnormal code = 39306-6) [facility], TIBC, % SAT. (WITHOUT FERRITIN)2022-01-08 04:12:15 Test Item Value Reference Range Interpretation Comments IRON (BEAKER) (test code = 547) 21.0 ug/dL 40.0-160.0 L TOTAL IRON BINDING CAPACITY 211 ug/dL 250-450 L (BEAKER) (test code = 769) IRON % SATURATION (2) (BEAKER) 10 % 20-55 L (test code = 2590) Security Alarm Installer ID Nelly SORIANO [facility] with platelet count + automated [id number] 03:54:43 Test Item Value Reference Range Interpretation Comments WBC (test code = 6690-2) 11.1 See_Comment H [A utomated message] The system [employer] generated this result transmitted ref erence range: 3.5 - 10 .5 K/L. The refe rence range was not u sed to interpret this result as normal/abnor mal. RBC (test code = 789-8) 3.10 See_Comment L [Au tomated message] The system [employer] generated this result transmitted ref erence range: 3.93 - 5 .22 M/L. The refe rence range was not u sed to interpret this result as normal/abnor mal. MCHC (test code = 786-4) 32.5 See_Comment L [A utomated message] The system [employer] generated this result transmitted ref erence range: 32.2 - 3 5.5 GM/DL. The refe rence range was not u sed to interpret this result as normal/abnor mal. Hematocrit (test code = 30.8 % 34.1-44.9 L 4544-3) MCV (test code = 787-2) 99.4 fL 79.4-94.8 H MCH (test code = 785-6) 32.3 pg 25.6-32.2 H RDW (test code = 788-0) 13.2 % 11.7-14.4 Platelets (test code = 302 See_Comment [Aut omated message] 777-3) The system [employer] generated this result transmitted ref erence range: 150 - 45 0 K/CU MM. The referen ce range was not u sed to interpret this result as normal/abnor mal. MPV (test code = 10.3 fL 9.4-12.3 14804-8) nRBC (test code = 413) 0 See_Comment [Aut omated message] The system [employer] generated this result transmitted ref erence range: 0 - 0 /1 00 WBC. The refere nce range was not u sed to interpret this result as normal/abnor mal. % Neutros (test code = 71 % 429) % Lymphs (test code = 15 % 430) % Monos (test code = 12 % 431) % Eos (test code = 432) 2 % % Baso (test code = 437) 0 % # Neutros (test code = 7.85 See_Comment H [Aut omated message] 670) The system [employer] generated this result transmitted ref erence range: 1.56 - 6 .13 K/L. The refe rence range was not u sed to interpret this result as normal/abnor mal. # Lymphs (test code = 1.62 See_Comment [Auto mated message] 414) The system [employer] generated this result transmitted ref erence range: 1.18 - 3 .74 K/L. The refe rence range was not u sed to interpret this result as normal/abnor mal. # Monos (test code = 1.34 See_Comment H [Autom ated message] 415) The system [employer] generated this result transmitted ref erence range: 0.24 - 0 .36 K/L. The refe rence range was not u sed to interpret this result as normal/abnor mal. # Eos (test code = 416) 0.20 See_Comment [Au tomated message] The system [employer] generated this result transmitted ref erence range: 0.04 - 0 .36 K/L. The refe rence range was not u sed to interpret this result as normal/abnor mal. # Baso (test code = 417) 0.03 See_Comment [A utomated message] The system [employer] generated this result transmitted ref erence range: 0.01 - 0 .08 K/L. The refe rence range was not u sed to interpret this result as normal/abnor mal. Immature 1 % 0-1 Granulocytes-Relative (test code = 2801) Lab Interpretation (test Abnormal code = 87158-5) [facility] with platelet count + automated [id number] 03:54:43 Test Item Value Reference Range Interpretation Comments WBC (test code = 6690-2) 11.1 See_Comment H [A utomated message] The system [employer] generated this result transmitted ref erence range: 3.5 - 10 .5 K/L. The refe rence range was not u sed to interpret this result as normal/abnor mal. RBC (test code = 789-8) 3.10 See_Comment L [Au tomated message] The system [employer] generated this result transmitted ref erence range: 3.93 - 5 .22 M/L. The refe rence range was not u sed to interpret this result as normal/abnor mal. MCHC (test code = 786-4) 32.5 See_Comment L [A utomated message] The system [employer] generated this result transmitted ref erence range: 32.2 - 3 5.5 GM/DL. The refe rence range was not u sed to interpret this result as normal/abnor mal. Hematocrit (test code = 30.8 % 34.1-44.9 L 4544-3) MCV (test code = 787-2) 99.4 fL 79.4-94.8 H MCH (test code = 785-6) 32.3 pg 25.6-32.2 H RDW (test code = 788-0) 13.2 % 11.7-14.4 Platelets (test code = 302 See_Comment [Aut omated message] 777-3) The system [employer] generated this result transmitted ref erence range: 150 - 45 0 K/CU MM. The referen ce range was not u sed to interpret this result as normal/abnor mal. MPV (test code = 10.3 fL 9.4-12.3 95977-3) nRBC (test code = 413) 0 See_Comment [Aut omated message] The system [employer] generated this result transmitted ref erence range: 0 - 0 /1 00 WBC. The refere nce range was not u sed to interpret this result as normal/abnor mal. % Neutros (test code = 71 % 429) % Lymphs (test code = 15 % 430) % Monos (test code = 12 % 431) % Eos (test code = 432) 2 % % Baso (test code = 437) 0 % # Neutros (test code = 7.85 See_Comment H [Aut omated message] 670) The system [employer] generated this result transmitted ref erence range: 1.56 - 6 .13 K/L. The refe rence range was not u sed to interpret this result as normal/abnor mal. # Lymphs (test code = 1.62 See_Comment [Auto mated message] 414) The system [employer] generated this result transmitted ref erence range: 1.18 - 3 .74 K/L. The refe rence range was not u sed to interpret this result as normal/abnor mal. # Monos (test code = 1.34 See_Comment H [Autom ated message] 415) The system [employer] generated this result transmitted ref erence range: 0.24 - 0 .36 K/L. The refe rence range was not u sed to interpret this result as normal/abnor mal. # Eos (test code = 416) 0.20 See_Comment [Au tomated message] The system [employer] generated this result transmitted ref erence range: 0.04 - 0 .36 K/L. The refe rence range was not u sed to interpret this result as normal/abnor mal. # Baso (test code = 417) 0.03 See_Comment [A utomated message] The system [employer] generated this result transmitted ref erence range: 0.01 - 0 .08 K/L. The refe rence range was not u sed to interpret this result as normal/abnor mal. Immature 1 % 0-1 Granulocytes-Relative (test code = 2801) Lab Interpretation (test Abnormal code = 73940-7) [facility] + automated [id number] 03:54:43 Test Item Value Reference Range Interpretation Comments WBC (test code = 6690-2) 11.1 See_Comment H [A utomated message] The system [employer] generated this result transmitted ref erence range: 3.5 - 10 .5 K/L. The refe rence range was not u sed to interpret this result as normal/abnor mal. RBC (test code = 789-8) 3.10 See_Comment L [Au tomated message] The system Olery generated this result transmitted ref erence range: 3.93 - 5 .22 M/L. The refe rence range was not u sed to interpret this result as normal/abnor mal. MCHC (test code = 786-4) 32.5 See_Comment L [A utomated message] The system Olery generated this result transmitted ref erence range: 32.2 - 3 5.5 GM/DL. The refe rence range was not u sed to interpret this result as normal/abnor mal. Hematocrit (test code = 30.8 % 34.1-44.9 L 4544-3) MCV (test code = 787-2) 99.4 fL 79.4-94.8 H MCH (test code = 785-6) 32.3 pg 25.6-32.2 H RDW (test code = 788-0) 13.2 % 11.7-14.4 Platelets (test code = 302 See_Comment [Aut omated message] 777-3) The system Olery generated this result transmitted ref erence range: 150 - 45 0 K/CU MM. The referen ce range was not u sed to interpret this result as normal/abnor mal. MPV (test code = 10.3 fL 9.4-12.3 29784-8) nRBC (test code = 413) 0 See_Comment [Aut omated message] The system Olery generated this result transmitted ref erence range: 0 - 0 /1 00 WBC. The refere nce range was not u sed to interpret this result as normal/abnor mal. % Neutros (test code = 71 % 429) % Lymphs (test code = 15 % 430) % Monos (test code = 12 % 431) % Eos (test code = 432) 2 % % Baso (test code = 437) 0 % # Neutros (test code = 7.85 See_Comment H [Aut omated message] 670) The system Olery generated this result transmitted ref erence range: 1.56 - 6 .13 K/L. The refe rence range was not u sed to interpret this result as normal/abnor mal. # Lymphs (test code = 1.62 See_Comment [Auto mated message] 414) The system Olery generated this result transmitted ref erence range: 1.18 - 3 .74 K/L. The refe rence range was not u sed to interpret this result as normal/abnor mal. # Monos (test code = 1.34 See_Comment H [Autom ated message] 415) The system Olery generated this result transmitted ref erence range: 0.24 - 0 .36 K/L. The refe rence range was not u sed to interpret this result as normal/abnor mal. # Eos (test code = 416) 0.20 See_Comment [Au tomated message] The system Olery generated this result transmitted ref erence range: 0.04 - 0 .36 K/L. The refe rence range was not u sed to interpret this result as normal/abnor mal. # Baso (test code = 417) 0.03 See_Comment [A utomated message] The system Olery generated this result transmitted ref erence range: 0.01 - 0 .08 K/L. The refe rence range was not u sed to interpret this result as normal/abnor mal. Immature 1 % 0-1 Granulocytes-Relative (test code = 2801) Lab Interpretation (test Abnormal code = 33892-4) [facility] [place] W/PLT COUNT & AUTO [id number] 03:54:43 Test Item Value Reference Range Interpretation Comments WHITE BLOOD CELL COUNT (BEAKER) 11.1 K/ L 3.5-10.5 H (test code = 775) RED BLOOD CELL COUNT (BEAKER) 3.10 M/ L 3.93-5.22 L (test code = 761) HEMOGLOBIN (BEAKER) (test code = 10.0 GM/DL 11.2-15.7 L 410) HEMATOCRIT (BEAKER) (test code = 30.8 % 34.1-44.9 L 411) MEAN CORPUSCULAR VOLUME (BEAKER) 99.4 fL 79.4-94.8 H (test code = 753) MEAN CORPUSCULAR HEMOGLOBIN 32.3 pg 25.6-32.2 H (BEAKER) (test code = 751) MEAN CORPUSCULAR HEMOGLOBIN CONC 32.5 GM/DL 32.2-35.5 (BEAKER) (test code = 752) RED CELL DISTRIBUTION WIDTH 13.2 % 11.7-14.4 (BEAKER) (test code = 412) PLATELET COUNT (BEAKER) (test 302 K/CU MM 150-450 code = 756) MEAN PLATELET VOLUME (BEAKER) 10.3 fL 9.4-12.3 (test code = 754) NUCLEATED RED BLOOD CELLS 0 /100 WBC 0-0 (BEAKER) (test code = 413) NEUTROPHILS RELATIVE PERCENT 71 % (BEAKER) (test code = 429) LYMPHOCYTES RELATIVE PERCENT 15 % (BEAKER) (test code = 430) MONOCYTES RELATIVE PERCENT 12 % (BEAKER) (test code = 431) EOSINOPHILS RELATIVE PERCENT 2 % (BEAKER) (test code = 432) BASOPHILS RELATIVE PERCENT 0 % (BEAKER) (test code = 437) NEUTROPHILS ABSOLUTE COUNT 7.85 K/ L 1.56-6.13 H (BEAKER) (test code = 670) LYMPHOCYTES ABSOLUTE COUNT 1.62 K/ L 1.18-3.74 (BEAKER) (test code = 414) MONOCYTES ABSOLUTE COUNT (BEAKER) 1.34 K/ L 0.24-0.36 H (test code = 415) EOSINOPHILS ABSOLUTE COUNT 0.20 K/ L 0.04-0.36 (BEAKER) (test code = 416) BASOPHILS ABSOLUTE COUNT (BEAKER) 0.03 K/ L 0.01-0.08 (test code = 417) IMMATURE GRANULOCYTES-RELATIVE 1 % 0-1 PERCENT (BEAKER) (test code = 2801) Basic Metabolic [id number] 06:11:20 Test Item Value Reference Range Interpretation Comments Sodium (test code = 138 meq/L 985-171 4125-2) Potassium (test code = 3.8 meq/L 3.5-5.1 2823-3) Chloride (test code = 104 meq/L 98-107 2075-0) CO2 (test code = 28 meq/L 22-29 2028-9) BUN (test code = 8 mg/dL 7-21 3094-0) Creatinine (test code 0.52 mg/dL 0.57-1.25 L = 2160-0) Glucose (test code = 90 mg/dL 70-105 2345-7) Calcium (test code = 8.6 mg/dL 8.4-10.2 95953-1) EGFR (test code = 116 mL/min/1[place] [address]-4) NOT ACCURATE CREATININE CLEARANCE IN PREDICTING GLOMERULAR FILTRATION RATE . ESTIMATED GFR I S NOT APPLICABLE FOR DIALYSIS PATIENTS. ADONIS (test code = ADONIS) Security Alarm Installer ID - PIAYA L Lab Interpretation Abnormal (test code = 30156-2) [facility] [id number] 06:11:20 Test Item Value Reference Range Interpretation Comments Sodium (test code = 138 meq/L 114-534 4842-2) Potassium (test code = 3.8 meq/L 3.5-5.1 2823-3) Chloride (test code = 104 meq/L 98-107 2075-0) CO2 (test code = 28 meq/L 2027-) BUN (test code = 8 mg/dL 05-03 3094-0) Creatinine (test code 0.52 mg/dL 0.57-1.25 L = 2160-0) Glucose (test code = 90 mg/dL 70-105 2345-7) Calcium (test code = 8.6 mg/dL 8.4-10.2 50892-8) EGFR (test code = 116 mL/min/1.[place] [address]-0) NOT ACCURATE CREATININE CLEARANCE IN PREDICTING GLOMERULAR FILTRATION RATE . ESTIMATED GFR I S NOT APPLICABLE FOR DIALYSIS PATIENTS. ADONIS (test code = ADONIS) Security Alarm Installer ID - PIAYA L Lab Interpretation Abnormal (test code = 86459-8) [facility] Metabolic [id number] 06:11:20 Test Item Value Reference Range Interpretation Comments Sodium (test code = 138 meq/L 556-179 8151-2) Potassium (test code = 3.8 meq/L 3.5-5.1 2823-3) Chloride (test code = 104 meq/L 98-107 2075-0) CO2 (test code = 28 meq/L 9) BUN (test code = 8 mg/dL 05-03 3094-0) Creatinine (test code 0.52 mg/dL 0.57-1.25 L = 2160-0) Glucose (test code = 90 mg/dL 70-105 2345-7) Calcium (test code = 8.6 mg/dL 8.4-10.2 90950-4) EGFR (test code = 116 mL/min/1.[place] [address]-8) NOT ACCURATE CREATININE CLEARANCE IN PREDICTING GLOMERULAR FILTRATION RATE . ESTIMATED GFR I S NOT APPLICABLE FOR DIALYSIS PATIENTS. ADONIS (test code = ADONIS) Security Alarm Installer ID - PIAYA L Lab Interpretation Abnormal (test code = 24757-9) [facility] METABOLIC [id number] 06:11:20 Test Item Value Reference Range Interpretation Comments SODIUM (BEAKER) 138 meq/L 136-145 (test code = 381) POTASSIUM (BEAKER) 3.8 meq/L 3.5-5.1 (test code = 379) CHLORIDE (BEAKER) 104 meq/L 98-107 (test code = 382) CO2 (BEAKER) (test 28 meq/L 22-29 code = 355) BLOOD UREA NITROGEN 8 mg/dL 7-21 (BEAKER) (test code = 354) CREATININE (BEAKER) 0.52 mg/dL 0.57-1.25 L (test code = 358) GLUCOSE RANDOM 90 mg/dL 70-105 (BEAKER) (test code = 652) CALCIUM (BEAKER) 8.6 mg/dL 8.4-10.2 (test code = 697) EGFR (BEAKER) (test 116 mL/min/1.73 ESTIM ATED GFR IS code = 1092) sq m NOT ACCURATE CREATININE CLEARANCE IN PREDICTING GLOMERULAR FILTRATION RATE . ESTIMATED GFR I S NOT APPLICABLE FOR DIALYSIS PATIEN TS. Security Alarm Installer ID - PIAYA [facility]BC W/PLT COUNT & AUTO [id number] 05:40:27 Test Item Value Reference Range Interpretation Comments WHITE BLOOD CELL COUNT (BEAKER) 10.2 K/ L 3.5-10.5 (test code = 775) RED BLOOD CELL COUNT (BEAKER) 3.26 M/ L 3.93-5.22 L (test code = 761) HEMOGLOBIN (BEAKER) (test code = 10.4 GM/DL 11.2-15.7 L 410) HEMATOCRIT (BEAKER) (test code = 33.3 % 34.1-44.9 L 411) MEAN CORPUSCULAR VOLUME (BEAKER) 102.1 fL 79.4-94.8 H (test code = 753) MEAN CORPUSCULAR HEMOGLOBIN 31.9 pg 25.6-32.2 (BEAKER) (test code = 751) MEAN CORPUSCULAR HEMOGLOBIN CONC 31.2 GM/DL 32.2-35.5 L (BEAKER) (test code = 752) RED CELL DISTRIBUTION WIDTH 13.2 % 11.7-14.4 (BEAKER) (test code = 412) PLATELET COUNT (BEAKER) (test 275 K/CU MM 150-450 code = 756) MEAN PLATELET VOLUME (BEAKER) 10.7 fL 9.4-12.3 (test code = 754) NUCLEATED RED BLOOD CELLS 0 /100 WBC 0-0 (BEAKER) (test code = 413) NEUTROPHILS RELATIVE PERCENT 72 % (BEAKER) (test code = 429) LYMPHOCYTES RELATIVE PERCENT 15 % (BEAKER) (test code = 430) MONOCYTES RELATIVE PERCENT 12 % (BEAKER) (test code = 431) EOSINOPHILS RELATIVE PERCENT 1 % (BEAKER) (test code = 432) BASOPHILS RELATIVE PERCENT 0 % (BEAKER) (test code = 437) NEUTROPHILS ABSOLUTE COUNT 7.35 K/ L 1.56-6.13 H (BEAKER) (test code = 670) LYMPHOCYTES ABSOLUTE COUNT 1.50 K/ L 1.18-3.74 (BEAKER) (test code = 414) MONOCYTES ABSOLUTE COUNT (BEAKER) 1.19 K/ L 0.24-0.36 H (test code = 415) EOSINOPHILS ABSOLUTE COUNT 0.11 K/ L 0.04-0.36 (BEAKER) (test code = 416) BASOPHILS ABSOLUTE COUNT (BEAKER) 0.03 K/ L 0.01-0.08 (test code = 417) IMMATURE GRANULOCYTES-RELATIVE 1 % 0-1 PERCENT (BEAKER) (test code = 2801) SARS-COV2/RT-PCR ([facility])2022-01-04 20:29:19 Test Item Value Reference Range Interpretation Comments SARS-COV2/RT-PCR (test code = Negative Negative [id number]) Negative result for this test determines that SARS-CoV-2 RNA was not present in the specimen above the Limit of Detection (LOD). However, Negative results do not preclude SARS-CoV-2 infection and should not be used as the sole basis for treatment or patient management decisions. Negative results must be combined with clinical observations, patient history, and epidemiological information. A false negative result may occur if a specimen is improperly collected, transported, or handled. A false negative result should be considered if patient's recent exposures or clinical presentation indicate that COVID-19 (SARS-CoV-2) is likely and diagnostic tests for other causes of illness are negative. Re-testing should be considered in cases of suspected false negatives.The limit of detection for this assay is 100 copies/mL.This SARS-CoV-2 test is a real-time RT_PCR test intended for the qualitative detection of nucleic acid from SARS-CoV-2 in a nasopharyngeal swab specimen collected from individuals suspected of COVID-19 by their healthcare provider.This test has not been Food and Drug Administration (FDA) cleared or approved. This is a modified version of an approved Emergency Use Authorization (EUA) and is in the process of review by the FDA. Once authorized by the FDA, the issued EUA will be effective until the declaration that circumstances exist justifying the authorization of the emergency use of in vitro diagnostic tests for detection and/or diagnosis of COVID-19 is terminated under Section 564(b)(2) of the Act or the EUA is revoked under Section 564(g) of the Act.Testing was performed using Giveit100 SARS-CoV-2 assay.Fact Sheet for Healthcare Providers:https://www.[employer].[facility]/williams/RT SARS-CoV-2 HCP Fact Sheet 51- 907188.pdfFact Sheet for Healthcare Patients:https://www.[employer].[facility]/williams/RT SARS-CoV-2 Patient Fact Sheet EN 51-871263W9.pdfFL, FLUORO, NON-SPECIFIC, UP TO 1 [id number] 19:00:00Reason for exam:->IM rodding left tibia [facility] 1950 Sex: FAn imaging unit was utilized for this procedure. No radiologist interpretation was requested. Refer to the EMR for findings. Refer to PACS for any patient radiation dose information.RAD, LEG, [id number] 10:10:00Reason for exam:->tibia fibula fractureShould this be performed at the bedside?->No [facility] : 1950 Sex: FFINAL REPORT CLINICAL HISTORY: tibia fibula fracture TECHNIQUE: AP and lateral views ofthe left tibia and fibula COMPARISON: None IMPRESSION: A cast decreases fine osseous detail, but there is a comminuted fracture of the distal tibial shaft. There is an oblique fracture through the proximal fibular shaft. Signed: Tyler Hitchcock MDReport Verified Date/Time: 01/04/2022 10:10:34 Reading Location: [facility] Radiology Reading Room BASIC METABOLIC [id number] 07:05:54 Test Item Value Reference Range Interpretation Comments SODIUM (BEAKER) 139 meq/L 136-145 (test code = 381) POTASSIUM (BEAKER) 4.2 meq/L 3.5-5.1 (test code = 379) CHLORIDE (BEAKER) 103 meq/L 98-107 (test code = 382) CO2 (BEAKER) (test 24 meq/L 22-29 code = 355) BLOOD UREA NITROGEN 11 mg/dL 7-21 (BEAKER) (test code = 354) CREATININE (BEAKER) 0.68 mg/dL 0.57-1.25 (test code = 358) GLUCOSE RANDOM 109 mg/dL 70-105 H (BEAKER) (test code = 652) CALCIUM (BEAKER) 8.9 mg/dL 8.4-10.2 (test code = 697) EGFR (BEAKER) (test 85 mL/min/1.73 ESTIMA KD GFR IS code = 1092) sq m NOT ACCURATE CREATININE CLEARANCE IN PREDICTING GLOMERULAR FILTRATION RATE . ESTIMATED GFR I S NOT APPLICABLE FOR DIALYSIS PATIEN TS. Security Alarm Installer ID - TIFFANY GPT/[id number] 06:11:33 Test Item Value Reference Interpretation Comments Range Protime (test code = 12.6 See_Comment [Autom ated 5902-2) message] The system which generated this result transmitted reference range : 11.9 - 14.2 seconds. The reference range was not used to interpret this result as normal/abnormal . INR (test code = 0.96 See_Comment [Automated 6301-6) message] The system which generated this result transmitted reference range : <=5.90. The reference range was not used to interpret this result as normal/abnormal . PTT (test code = 25.2 See_Comment [Automated 89117-2) message] The system which generated this result transmitted reference range : 22.5 - 36.0 seconds. The reference range was not used to interpret this result as normal/abnormal . ADONIS (test code = RECOMMENDED ADONIS) COUMADIN/WARFARIN INR THERAPY RANGESSTANDARD DOSE: 2.0 - 3.0 Includes: PROPHYLAXIS for venous thrombosis, systemic embolization; TREATMENT for venous thrombosis and/or pulmonary embolus.HIGH RISK: Target INR is 2.5-3.5 for patients with mechanical heart valves. Lab Interpretation Normal (test code = 51796-2) [id number] 06:11:33 Test Item Value Reference Interpretation Comments Range Protime (test code = 12.6 See_Comment [Autom ated 5902-2) message] The system which generated this result transmitted reference range : 11.9 - 14.2 seconds. The reference range was not used to interpret this result as normal/abnormal . INR (test code = 0.96 See_Comment [Automated 6301-6) message] The system which generated this result transmitted reference range : <=5.90. The reference range was not used to interpret this result as normal/abnormal . PTT (test code = 25.2 See_Comment [Automated 98114-7) message] The system which generated this result transmitted reference range : 22.5 - 36.0 seconds. The reference range was not used to interpret this result as normal/abnormal . ADONIS (test code = RECOMMENDED ADONIS) COUMADIN/WARFARIN INR THERAPY RANGESSTANDARD DOSE: 2.0 - 3.0 Includes: PROPHYLAXIS for venous thrombosis, systemic embolization; TREATMENT for venous thrombosis and/or pulmonary embolus.HIGH RISK: Target INR is 2.5-3.5 for patients with mechanical heart valves. Lab Interpretation Normal (test code = 36238-1) [facility]/[id number] 06:11:33 Test Item Value Reference Interpretation Comments Range Protime (test code = 12.6 See_Comment [Autom ated 5902-2) message] The system which generated this result transmitted reference range : 11.9 - 14.2 seconds. The reference range was not used to interpret this result as normal/abnormal . INR (test code = 0.96 See_Comment [Automated 4311-6) message] The system which generated this result transmitted reference range : <=5.90. The reference range was not used to interpret this result as normal/abnormal . PTT (test code = 25.2 See_Comment [Automated 26899-2) message] The system which generated this result transmitted reference range : 22.5 - 36.0 seconds. The reference range was not used to interpret this result as normal/abnormal . ADONIS (test code = RECOMMENDED ADONIS) COUMADIN/WARFARIN INR THERAPY RANGESSTANDARD DOSE: 2.0 - 3.0 Includes: PROPHYLAXIS for venous thrombosis, systemic embolization; TREATMENT for venous thrombosis and/or pulmonary embolus.HIGH RISK: Target INR is 2.5-3.5 for patients with mechanical heart valves. Lab Interpretation Normal (test code = 45765-3) [facility]/[id number] 06:11:33 Test Item Value Reference Range Interpretation Comments PROTIME (BEAKER) (test 12.6 seconds 11.9-14.2 code = 759) INR (BEAKER) (test 0.96 See_Comment [Automat ed code = 370) message] The sy stem which generated this result transmitted reference range : <=5.90. The reference range was not used to interpret this result as normal/abnormal . PARTIAL THROMBOPLASTIN 25.2 seconds 22.5-36.0 TIME (BEAKER) (test code = 760) RECOMMENDED COUMADIN/WARFARIN INR THERAPY RANGESSTANDARD DOSE: 2.0 - 3.0 Includes: PROPHYLAXIS for venous thrombosis, systemic embolization; TREATMENT for venous thrombosis and/or pulmonary embolus.HIGH RISK: Target INR is 2.5-3.5 for patients with mechanical heart valves.CBC W/PLT COUNT & AUTO [id number] 06:07:04 Test Item Value Reference Range Interpretation Comments WHITE BLOOD CELL COUNT (BEAKER) 13.1 K/ L 3.5-10.5 H (test code = 775) RED BLOOD CELL COUNT (BEAKER) 4.20 M/ L 3.93-5.22 (test code = 761) HEMOGLOBIN (BEAKER) (test code = 13.5 GM/DL 11.2-15.7 410) HEMATOCRIT (BEAKER) (test code = 42.6 % 34.1-44.9 411) MEAN CORPUSCULAR VOLUME (BEAKER) 101.4 fL 79.4-94.8 H (test code = 753) MEAN CORPUSCULAR HEMOGLOBIN 32.1 pg 25.6-32.2 (BEAKER) (test code = 751) MEAN CORPUSCULAR HEMOGLOBIN CONC 31.7 GM/DL 32.2-35.5 L (BEAKER) (test code = 752) RED CELL DISTRIBUTION WIDTH 13.2 % 11.7-14.4 (BEAKER) (test code = 412) PLATELET COUNT (BEAKER) (test 342 K/CU MM 150-450 code = 756) MEAN PLATELET VOLUME (BEAKER) 10.5 fL 9.4-12.3 (test code = 754) NUCLEATED RED BLOOD CELLS 0 /100 WBC 0-0 (BEAKER) (test code = 413) NEUTROPHILS RELATIVE PERCENT 80 % (BEAKER) (test code = 429) LYMPHOCYTES RELATIVE PERCENT 10 % (BEAKER) (test code = 430) MONOCYTES RELATIVE PERCENT 8 % (BEAKER) (test code = 431) EOSINOPHILS RELATIVE PERCENT 1 % (BEAKER) (test code = 432) BASOPHILS RELATIVE PERCENT 0 % (BEAKER) (test code = 437) NEUTROPHILS ABSOLUTE COUNT 10.55 K/ L 1.56-6.13 H (BEAKER) (test code = 670) LYMPHOCYTES ABSOLUTE COUNT 1.32 K/ L 1.18-3.74 (BEAKER) (test code = 414) MONOCYTES ABSOLUTE COUNT (BEAKER) 1.09 K/ L 0.24-0.36 H (test code = 415) EOSINOPHILS ABSOLUTE COUNT 0.06 K/ L 0.04-0.36 (BEAKER) (test code = 416) BASOPHILS ABSOLUTE COUNT (BEAKER) 0.04 K/ L 0.01-0.08 (test code = 417) IMMATURE GRANULOCYTES-RELATIVE 1 % 0-1 PERCENT (BEAKER) (test code = 2801) ABORH, [id number] 01:28:00 Test Item Value Reference Range Interpretation Comments ABO Grouping (test code = 2588) B Rh Factor (test code = 2589) POS [facility], [id number] 01:28:00 Test Item Value Reference Range Interpretation Comments ABO Grouping (test code = 2588) B Rh Factor (test code = 2589) POS [facility], [id number] 01:28:00 Test Item Value Reference Range Interpretation Comments ABO Grouping (test code = 2588) B Rh Factor (test code = 2589) POS [facility] CenterType and screen, [id number] 00:56:00 Test Item Value Reference Range Interpretation Comments ABO/RH AUTOMATED (BEAKER) (test B POSITIVE code = 2260) Ab Scrn (test code = 890-4) NEGATIVE [facility], [id number] 00:56:00 Test Item Value Reference Range Interpretation Comments ABO/RH AUTOMATED (BEAKER) (test B POSITIVE code = 2260) Ab Scrn (test code = 890-4) NEGATIVE [facility], [id number] 00:56:00 Test Item Value Reference Range Interpretation Comments ABO/RH AUTOMATED (BEAKER) (test B POSITIVE code = 2260) Ab Scrn (test code = 890-4) NEGATIVE [facility]
[2023-08-28] MEDS ORDERED: HYDROCODONE/APAP 7.5/325 MG TAB ONE (11:07)
--- NOTE | 2023-08-28 11:47 | RAD REPORT ---
EXAM DESCRIPTION: CT - Thorax Wo Con - 08/28/2023 11:02 am CLINICAL HISTORY: posterior left rib pain;Trauma COMPARISON: Lung Cancer Screening CT W/O dated 07/18/2023 TECHNIQUE: Axial thin cut images of the chest were obtained without IV contrast. Multiplanar reforma ts were generated and reviewed. All CT scans are performed using dose optimization technique as appropriate and may include automated exposure control or mA/KV adjustment according to patient size. FINDINGS: Stable bilateral lung nodules, including a mixed lucent and solid right basal nodule demon strating a 5 millimeter solid component. Background moderate centrilobular emphysematous changes. Lef t basilar subsegmental atelectasis. No other cyst mass or infiltrate in the lung parenchyma. Mild lef t pleural effusion. No pneumothorax. No abnormal mediastinal or hilar masses or lymphadenopathy seen. No significant aortic or pulmonary a rtery findings. Assessment is limited in the absence of IV contrast. No chest wall mass or abnormal axillary lymphadenopathy. Evaluation of the solid abdominal structures reveals no suspicious findings. Displaced posterolateral left fourth through ninth rib fractures, with some comminuted fractures. Add itional minimally displaced fractures near the costovertebral junctions of the third through tenth le ft ribs. Deformity of the sternum again seen. IMPRESSION: Left rib fractures including the third through tenth ribs, with 2 fracture sites along e ach of the fourth through ninth ribs, which may raise concern for a flail chest segment, although the fractures near the costovertebral junctions only appear to be minimally displaced. Trace left pleural effusion or pneumothorax. Underlying dependent left subsegmental atelectasis. Stable bilateral lung nodules as above.
--- NOTE | 2023-08-28 12:28 | EDPHYS ---
Physician Documentation [facility] Name: Perethi Ritter Age: 72 yrs Sex: Female : 1950 Arrival Date: 08/28/2023 Time: 10:20 Bed 12 Private MD: ED Physician Rob Gambino HPI: 08/28 11:17 This 72 yrs old Female presents to ER via Wheelchair with complaints of Fall Injury, kb Back Pain. 11:17 Details of fall: The patient fell from an upright position. Patient reports she tripped kb on her back patio 3 days ago. Reports she hit her left lower ribs on the palma couch. Has had pain and muscle spasms to that area since the fall. Pain worse with deep inspiration.. Historical: - Allergies: 10:43 No Known Allergies; mb9 - Home Meds: 10:43 None [Active]; mb9 - PMHx: 10:43 Breast cancer; Hypercholesterolemia; mb9 - PSHx: 10:43 Left leg; mb9 - Immunization history:: Adult Immunizations up to date. - Social history:: Smoking status: Patient denies any tobacco usage or history of. ROS: 11:15 Constitutional: Negative for fever, chills, and weight loss, kb 11:15 Back: Positive for pain at rest, pain with movement, of the left subscapular area and left mid back, 11:15 All other systems are negative, Exam: 11:16 Constitutional: This is a well developed, well nourished patient who is awake, alert, kb and in no acute distress. Head/Face: Normocephalic, atraumatic. Eyes: Pupils equal round and reactive to light, extra-ocular motions intact. Lids and lashes normal. Conjunctiva and sclera are non-icteric and not injected. Cornea within normal limits. Periorbital areas with no swelling, redness, or edema. ENT: Moist Mucous membranes Cardiovascular: Regular rate Respiratory: Respirations even and unlabored. No increased work of breathing. Talking in full sentences Skin: Warm, dry with normal turgor. Normal color. MS/ Extremity: Pulses equal, no cyanosis. Neurovascular intact. Full, normal range of motion. Neuro: Awake and alert, GCS 15, oriented to person, place, time, and situation. Moves all extremities. Normal gait. 11:16 Back: pain, that is moderate, of the left mid back and left subscapular area, ROM is painful, normal spinal alignment noted, Vital Signs: 10:41 BP 144 / 89; Pulse 99; Resp 18; Temp 98; Pulse Ox 96% on R/A; Weight 68.04 kg; Height 5 mb9 ft. 3 in. ; Pain 8/10; 12:12 Resp 21; Pulse Ox 94% on R/A; me1 12:13 BP 154 / 81; Pulse 89; Resp 21; Pulse Ox 100% on 2 lpm NC; me1 14:34 BP 111 / 58; Pulse 95; Resp 18; Pulse Ox 97% on 2 lpm NC; Pain 10/10; me1 10:41 Body Mass Index 26.57 (68.04 kg, 160.02 cm) mb9 10:41 Pain Scale: Adult mb9 14:34 Pain Scale: Adult me1 MDM: 10:29 Patient medically screened. kb 11:16 Differential diagnosis: contusion, fracture, strain. Data reviewed: vital signs, nurses kb notes. 12:12 Consideration of Admission/Observation Escalation of care including kb admission/observation considered. pt will be transferred for Trauma. Management of patient was discussed with the following: Vice President Digital Strategist: Dr Bryant, recommends transfer. Counseling: I had a detailed discussion with the patient and/or guardian regarding the historical points, exam findings, and any diagnostic results supporting the discharge/admit diagnosis, lab results, radiology results, the need to transfer to another facility, [facility] does not immediately have the required specialist. ED course: Pt requests to be transferred to [facility]. 12:27 Management of patient was discussed with the following: Dr Reyes with trauma at [facility] accepts pt for transfer. 08/28 12:11 Order name: CBC with Diff; Complete Time: 13:35 kb 08/28 12:44 Order name: CBC Smear Scan; Complete Time: 13:35 EDMS 08/28 10:44 Order name: CT Chest Wo Con; Complete Time: 11:53 kb 08/28 12:11 Order name: IV Start; Complete Time: 12:34 kb 08/28 12:11 Order name: Oxygen 08/28 13:20 Order name: Labs - recollect needed: recollect green top bd Administered Medications: 10:56 Drug: Hydrocodone-Acetaminophen PO (7.5 mg-325 mg) 1 tabs PO once Route: PO; ll1 12:38 Follow up: Response: No adverse reaction; Pain is decreased me1 14:34 Drug: morphine IVP or IV 4 mg IVP once over 4 mins Route: IVP; Infused Over: 4 mins; me1 Site: right forearm; 14:42 Follow up: Response: No adverse reaction; Pain is decreased me1 14:34 Drug: Ondansetron IVP 4 mg IVP once; over 2 minutes Route: IVP; Site: left forearm; me1 14:42 Follow up: Response: No adverse reaction me1 Disposition Summary: 08/28/23 12:27 Transfer Ordered Notes[facility]: Higher level of care kb Condition: Stable kb Problem: new kb Symptoms: are unchanged kb Accepting Physician: Dr Reyes(08/28/23 14:42) me1 Diagnosis - Multiple fractures of ribs, left side - 3-10 kb - Pulmonary effusion vs pneumothorax kb - Fall on same level from slipping, tripping and stumbling with subsequent striking kb against object Forms: - Medication Reconciliation Form kb - SBAR form kb Addendum: 08/30/2023 20:14 I reviewed the patient's care provided by the Advanced Practice Provider and agree with e c2 the diagnosis and treatment plan. Signatures: Dispatcher [employer] Cassie Jones, ZOLTAN-C CUSTOMER OPERATIONS SPECIALIST-Ckb Andreia Young Lynsay, RN RN ll1 Nicole Lamas RN RN mb9 Florencia Nino RN RN me1 Rob Gambino MD MD ec2 Corrections: (The following items were deleted from the chart) 08/28 14:42 12:27 Dr Reyes kb me1
--- NOTE | 2023-08-28 12:28 | ER ---
Nurse's Notes [facility] Name: Preethi Ritter Age: 72 yrs Sex: Female : 1950 Arrival Date: 08/28/2023 Time: 10:20 Bed 12 Private MD: Diagnosis: Multiple fractures of ribs, left side-3-10;Pulmonary effusion vs pneumothorax;Fall on same level from slipping, tripping and stumbling with subsequent striking against object Presentation: 08/28 10:41 Chief complaint: Patient states: "On Saturday, I tripped, twisted and hit my back on the mb9 edge of the sofa. I thought it would get better but I'm having bad spasms in my lower back." Pt denies LOC and does not take blood thinners. Coronavirus screen: At this time, the client does not indicate any symptoms associated with coronavirus-19. Ebola Screen: No symptoms or risks identified at this time. Initial Sepsis Screen: Does the patient meet any 2 criteria? No. Patient's initial sepsis screen is negative. Does the patient have a suspected source of infection? No. Patient's initial sepsis screen is negative. Risk Assessment: Do you want to hurt yourself or someone else? Patient reports no desire to harm self or others. Onset of symptoms was August 28, 2023. 10:41 Method Of Arrival: Wheelchair mb 10:41 Acuity: PETE 4 mb9 Triage Assessment: 10:44 General: Appears in no apparent distress. Behavior is calm, cooperative. Pain: mb9 Complains of pain in back. EENT: No signs and/or symptoms were reported regarding the EENT system. Neuro: Mcdonnell Agitation-Sedation Scale (RASS): 0 - Alert and Calm Level of Consciousness is awake, alert, obeys commands, Oriented to person, place, time, situation, Appropriate for age. Cardiovascular: Patient's skin is warm and dry. Respiratory: Airway is patent Respiratory effort is even, unlabored, Respiratory pattern is regular, symmetrical. GI: No signs and/or symptoms were reported involving the gastrointestinal system. Derm: Skin is pink, warm \\T\\ dry. Musculoskeletal: Range of motion: intact in all extremities. Historical: - Allergies: 10:43 No Known Allergies; mb9 - Home Meds: 10:43 None [Active]; mb9 - PMHx: 10:43 Breast cancer; Hypercholesterolemia; mb9 - PSHx: 10:43 Left leg; mb9 - Immunization history:: Adult Immunizations up to date. - Social history:: Smoking status: Patient denies any tobacco usage or history of. Screenin:41 [facility] ED Fall Risk Assessment (Adult) History of falling in the last 3 months, me1 including since admission Yes- single mechanical fall (1 pt) Confusion or Disorientation No (0 pts) Intoxicated or Sedated No (0 pts) Impaired Gait No (0 pts) Mobility Assist Device Used No (0 pt) Altered Elimination No (0 pt) Score/Fall Risk Level 0 - 2 = Low Risk Oriented to surroundings, Educated pt \\T\\ family on fall prevention, incl call for assistance when getting out of bed, Provided non-skid footwear, Hourly rounding (assess needs \\T\\ fall precautionary measures) done. Abuse screen: Denies threats or abuse. Nutritional screening: No deficits noted. Tuberculosis screening: No symptoms or risk factors identified. Assessment: 12:39 General: See triage assessment. . me1 Vital Signs: 10:41 BP 144 / 89; Pulse 99; Resp 18; Temp 98; Pulse Ox 96% on R/A; Weight 68.04 kg; Height 5 mb9 ft. 3 in. ; Pain 8/10; 12:12 Resp 21; Pulse Ox 94% on R/A; me1 12:13 BP 154 / 81; Pulse 89; Resp 21; Pulse Ox 100% on 2 lpm NC; me1 14:34 BP 111 / 58; Pulse 95; Resp 18; Pulse Ox 97% on 2 lpm NC; Pain 10/10; me1 10:41 Body Mass Index 26.57 (68.04 kg, 160.02 cm) mb9 10:41 Pain Scale: Adult mb9 14:34 Pain Scale: Adult me1 ED Course: 10:24 Patient arrived in ED. im 10:29 Cassie Moya FNP-C is PHCP. kb 10:29 Rob Gambino MD is Attending Physician. kb 10:43 Triage completed. mb9 10:43 Arm band placed on. mb9 10:56 Godfrey Castillo, ADDISON is Primary Nurse. ll1 11:03 CT Chest Wo Con In Process Unspecified. EDMS 12:29 initiated transfer to [facility], pt accepted in transfer by Sarah colbert bd approval given by Bina Valerio,pt going to ER. 12:34 CBC with Diff Sent. bc6 12:35 Basic Metabolic Panel Sent. bc6 12:35 Inserted saline lock: 22 gauge in right forearm, using aseptic technique. Blood bc6 collected. 14:41 Patient has correct armband on for positive identification. Bed in low position. Call me1 light in reach. Side rails up X 1. Provided Education on: POC. Verbalized understanding. . 14:41 No provider procedures requiring assistance completed. Flushed right forearm. me1 14:41 Patient transferred, IV remains in place. me1 Administered Medications: 10:56 Drug: Hydrocodone-Acetaminophen PO (7.5 mg-325 mg) 1 tabs PO once Route: PO; ll1 12:38 Follow up: Response: No adverse reaction; Pain is decreased me1 14:34 Drug: morphine IVP or IV 4 mg IVP once over 4 mins Route: IVP; Infused Over: 4 mins; me1 Site: right forearm; 14:42 Follow up: Response: No adverse reaction; Pain is decreased me1 14:34 Drug: Ondansetron IVP 4 mg IVP once; over 2 minutes Route: IVP; Site: left forearm; me1 14:42 Follow up: Response: No adverse reaction me1 Medication: 14:42 VIS not applicable for this client. me1 Outcome: 12:27 ER care complete, transfer ordered by . kb 12:47 Transferred by ground EMS to [facility], me1 12:47 Transferred by ground EMS to [facility], Note: Report given to [facility] ER nurse, Maria Elena Son RN. 12:47 Condition: stable 12:47 Instructed on the need for transfer, 14:42 Patient left the ED. me1 Signatures: Dispatcher [employer] Cassie Jones, GROUP MARKETING VP-C GROUP MARKETING VP-Andreia Bragg Lynsay, RN RN 1 Nicole Lamas, RN RN mb9 Izabella Escobar 6 Fiona Charles Michelle RN RN me1
[2023-08-28 12:41] LABS: Absolute Lymphocytes (CBC) 1.3 K/uL (0.7-4.9); Hematocrit 42.8 % (36.0-45.0); Lymphocytes % 7.8 % (15.3-44.8); MCV 98.1 fL (80-100); MPV 7.8 fL (7.6-11.3); Platelets 360 thou/uL (152-406); RBC Red Blood Cell Count 4.37 M/uL (3.86-4.86)
[2023-08-28 13:31] LABS: Blood Morphology Comment NOT SEEN (NOT SEEN); Platelet Estimate ADEQ; White Blood Cell Scan OK (OK)
[2023-08-28] MEDS ORDERED: ONDANSETRON 4 MG/2 ML VIAL ONE (14:42)
[2023-08-28 15:08] VITALS: TEMP 98
[2023-08-28 15:15] VITALS: BP 111/58; O2SAT 97
== END 2023-08-28 14:42 | disposition short-term general hospital (02) ==
LOC: ER 10:20
DX: S22.42XA Multiple fractures of ribs, left side, initial encounter for closed fracture (principal); J90 Pleural effusion, not elsewhere classified; W01.198A Fall on same level from slipping, tripping and stumbling with subsequent striking against other object, initial encounter; Z85.3 Personal history of malignant neoplasm of breast
CPT/HCPCS: 85025; 71250; 99285; J2405

== ENCOUNTER 2024-10-05 17:21 | Emergency (ER) | payer OTHER ==
--- OUTSIDE RECORDS SUMMARY | 2024-10-05 17:24 | XMS REPORT | Clinical Summary ---
Author Name Unknown Organization [facility] Address [address] [place] [address] Care Team Providers Care Clinical Case Manager Name Role Phone Ana Lilia Miller MD Unavailable [phone] Social History Tobacco Use Types Packs/Day Years Used Date Smoking Tobacco: Never Assessed Comments Unknown Sex and Gender Information Value Date Recorded Sex Assigned at Not on file Legal Sex Female 10:05 AM CDT Gender Identity Not on file Sexual Orientation Not on file Plan of Treatment Not on file Insurance [employer] ADV[employer]AGE [employer] Care Teams Clinical Case Manager Relationship Specialty Start Date End Date Ana Lilia Miller MD [address] [place] [id number] PCP - External Referring Family Practice 08/12/23
--- NOTE | 2024-10-05 18:27 | RAD REPORT ---
Exam:Knee Right 3 View HISTORY: Right knee pain FINDINGS: No fracture or dislocation seen If bones are osteoporotic. No additional bone or joint abnormality noted.
--- NOTE | 2024-10-05 20:06 | RAD REPORT ---
EXAM:Extremity Venous Uni Ltd HISTORY: Right leg pain TECHNIQUE: Sonographic evaluation right lower extremity performed.Grayscale, color and spectral rika sis performed on all vessels COMPARISON: None. FINDINGS: Right common femoral, superficial femoral, greater saphenous, popliteal and posterior tibial veins ar e compressible and demonstrate augmentation. Doppler demonstrates good flow. 3 x 1 x 1.5 cm Lopez's cyst IMPRESSION: No evidence of deep venous thrombosis involving the right lower extremity. 3 cm Lopez cyst
--- NOTE | 2024-10-05 20:31 | ER ---
Nurse's Notes [facility] Name: Preethi Ritter Age: 73 yrs Sex: Female : 1950 Arrival Date: 10/05/2024 Time: 17:21 Bed Treatment Private MD: Diagnosis: Synovial cyst of popliteal space [Lopez], right knee Presentation: 10/05 17:33 Chief complaint: Right knee pain since last night. Pain started while standing cooking. hb Coronavirus screen: At this time, the client does not indicate any symptoms associated with coronavirus-19. Ebola Screen: No symptoms or risks identified at this time. Initial Sepsis Screen: Does the patient meet any 2 criteria? No. Patient's initial sepsis screen is negative. Does the patient have a suspected source of infection? No. Patient's initial sepsis screen is negative. Risk Assessment: Do you want to hurt yourself or someone else? Patient reports no desire to harm self or others. Onset of symptoms was October 04, 2024. 17:33 Method Of Arrival: Wheelchair 17:33 Acuity: PETE 4 hb Triage Assessment: 21:00 General: Appears in no apparent distress. comfortable, slender, well groomed, well vc1 developed, well nourished, Behavior is calm, cooperative, appropriate for age. Pain: Complains of pain in right knee. EENT: No deficits noted. No signs and/or symptoms were reported regarding the EENT system. Neuro: Level of Consciousness is awake, alert, obeys commands, Oriented to person, place, time, situation, Appropriate for age. Cardiovascular: Capillary refill < 3 seconds Patient's skin is warm and dry. Respiratory: Airway is patent Respiratory effort is even, unlabored, Respiratory pattern is regular, symmetrical, Breath sounds are clear bilaterally. GI: No deficits noted. No signs and/or symptoms were reported involving the gastrointestinal system. : No deficits noted. No signs and/or symptoms were reported regarding the genitourinary system. Derm: Skin is intact, is healthy with good turgor, Skin is dry, Skin is normal, Skin temperature is warm. Musculoskeletal: Circulation, motion, and sensation intact. Range of motion: intact in all extremities, Reports pain in right leg and posterior aspect of right knee. Historical: - Allergies: 17:40 No Known Allergies; hb - PMHx: 17:40 breast cancer; Hypercholesterolemia; hb - PSHx: 17:40 left leg; hb - Immunization history:: Adult Immunizations up to date. - Infectious Disease History:: Denies. - Social history:: Smoking status: Patient reports the use of cigarette tobacco products, smokes one-half pack cigarettes per day. Screenin:58 [facility] ED Fall Risk Assessment (Adult) History of falling in the last 3 months, vc1 including since admission No falls in past 3 months (0 pts) Confusion or Disorientation No (0 pts) Intoxicated or Sedated No (0 pts) Impaired Gait Yes (1 pt) Mobility Assist Device Used Yes (1 pt) Altered Elimination No (0 pt) Score/Fall Risk Level 0 - 2 = Low Risk Oriented to surroundings, Maintained a safe environment, Educated pt \T\ family on fall prevention, incl call for assistance when getting out of bed. Abuse screen: Denies threats or abuse. Nutritional screening: No deficits noted. Tuberculosis screening: No symptoms or risk factors identified. Assessment: 21:01 Reassessment: Patient is alert, oriented x 3, equal unlabored respirations, skin mt4 warm/dry/pink. General: Appears in no apparent distress. comfortable, Behavior is calm, cooperative, appropriate for age. Pain: Denies pain. Neuro: Level of Consciousness is awake, alert, obeys commands, Oriented to person, place, time, situation, Table Tender are equal bilaterally Moves all extremities. Gait is steady, Speech is normal, Facial symmetry appears normal. Cardiovascular: Capillary refill < 3 seconds. Cardiovascular: Respiratory: Airway is patent Respiratory effort is even, unlabored, Respiratory pattern is regular, symmetrical. Musculoskeletal: Capillary refill < 3 seconds, Range of motion: intact in all extremities. Vital Signs: 17:41 BP 143 / 74; Pulse 92; Resp 18; Temp 98.1(TE); Pulse Ox 97% on R/A; Weight 62.6 kg; hb Height 5 ft. 2 in. ; Pain 5/10; 19:51 BP 126 / 82; Pulse 85; Resp 19; Temp 97.8(O); Pulse Ox 95% on R/A; mt4 21:00 BP 136 / 92; Pulse 85; Resp 17; Pulse Ox 93% on R/A; mt4 17:41 Body Mass Index 25.24 (62.60 kg, 157.48 cm) hb 17:41 Pain Scale: Adult hb Susie Coma Score: 21:01 Eye Response: spontaneous(4). Motor Response: obeys commands(6). Verbal Response: mt4 oriented(5). Total: 15. ED Course: 17:24 Patient arrived in ED. mr 17:26 [facility] sb4 17:26 Vlad Taylor MD is Attending Physician. sb4 17:26 PHCP role handed off by Sahra Conner PA-C kb 17:26 Cassie Moya FNP-C [facility]. kb 17:40 Triage completed. hb 18:11 Knee Right 3 View XRAY In Process Unspecified. EDMS 19:20 US Extremity Venous Unilateral Ltd In Process Unspecified. EDMS 19:20 Lower Extremity Artery Uni Ltd US In Process Unspecified. EDMS 20:58 Arm band placed on right wrist. vc1 20:59 Patient has correct armband on for positive identification. Provided Education on: vc1 medication, rest. 21:02 No provider procedures requiring assistance completed. Patient did not have IV access vc1 during this emergency room visit. Administered Medications: 20:57 Drug: Ketorolac IM 30 mg IM once Route: IM; Site: right deltoid; vc1 20:57 Follow up: Response: Medication administered at discharge. vc1 Medication: 20:58 VIS not applicable for this client. vc1 Outcome: 20:30 Discharge ordered by . kb 21:02 Discharged to home ambulatory, vc1 21:02 Condition: good 21:02 Discharge instructions given to patient, Instructed on discharge instructions, follow up and referral plans. medication usage, Demonstrated understanding of instructions, follow-up care, medications, Prescriptions given X 1, 21:02 Patient left the ED. vc1 Signatures: Dispatcher [employer] EDMS Cassie Moya FNP-C FNP-Nicole Gore, Reg Reg mr Alma Ovalles, RN RN Sharri Joy RN RN vc1 Sahra Conner PA-C PA-C sb4 Eula Villalta RN RN mt4
--- NOTE | 2024-10-05 20:31 | EDPHYS ---
Physician Documentation [facility] Name: Preethi Ritter Age: 73 yrs Sex: Female : 1950 Arrival Date: 10/05/2024 Time: 17:21 Bed Treatment Private MD: OSCAR Physician Vlad Taylor HPI: 10/05 17:28 This 73 yrs old Female presents to ER via Unassigned with complaints of Knee Pain. kb 17:28 Pt is a 73 year old female who presents for right knee pain that started yesterday. kb States she was cooking and moving around the kitchen so she could have twisted her knee or stepped wrong, but did not fall. States pain is aggravated by standing from sitting position. States she has been ambulatory using cane and/or walker. . Historical: - Allergies: 17:40 No Known Allergies; hb - PMHx: 17:40 breast cancer; Hypercholesterolemia; hb - PSHx: 17:40 left leg; hb - Immunization history:: Adult Immunizations up to date. - Infectious Disease History:: Denies. - Social history:: Smoking status: Patient reports the use of cigarette tobacco products, smokes one-half pack cigarettes per day. ROS: 17:33 Constitutional: As per HPI kb Exam: 17:40 Constitutional: This is a well developed, well nourished patient who is awake, alert, kb and in no acute distress. Head/Face: Normocephalic, atraumatic. ENT: Moist Mucous membranes Cardiovascular: Regular rate Respiratory: Respirations even and unlabored. No increased work of breathing. Talking in full sentences Abdomen/GI: Soft, non-tender. No distention Skin: Warm, dry with normal turgor. Normal color. Neuro: Awake and alert, GCS 15, oriented to person, place, time, and situation. 17:40 Musculoskeletal/extremity: Extremities: grossly normal except: noted in the posterior aspect of right knee: pain, tenderness, ROM: intact in all extremities, Circulation is intact in all extremities. Sensation intact. Weight bearing: can bear weight with assistance only, uses cane, Vital Signs: 17:41 BP 143 / 74; Pulse 92; Resp 18; Temp 98.1(TE); Pulse Ox 97% on R/A; Weight 62.6 kg; hb Height 5 ft. 2 in. ; Pain 5/10; 19:51 BP 126 / 82; Pulse 85; Resp 19; Temp 97.8(O); Pulse Ox 95% on R/A; mt4 21:00 BP 136 / 92; Pulse 85; Resp 17; Pulse Ox 93% on R/A; mt4 17:41 Body Mass Index 25.24 (62.60 kg, 157.48 cm) hb 17:41 Pain Scale: Adult hb [place] Coma Score: 21:01 Eye Response: spontaneous(4). Motor Response: obeys commands(6). Verbal Response: mt4 oriented(5). Total: 15. MDM: 17:26 Medical Screening Exam initiated kb 17:40 Differential diagnosis: fracture, strain, dvt. Data reviewed: vital signs, nurses kb notes. ED course: Pt reports she has had stents placed in left leg due to circulation issues so arterial US ordered as well as venous to rule out DVT. . 20:29 Counseling: I had a detailed discussion with the patient and/or guardian regarding the kb historical points, exam findings, and any diagnostic results supporting the discharge/admit diagnosis, radiology results, the need for outpatient follow up, a orthopedic surgeon, to return to the emergency department if symptoms worsen or persist or if there are any questions or concerns that arise at home. 10/05 17:33 Order name: Knee Right 3 View XRAY; Complete Time: 18:28 kb 10/05 17:33 Order name: US Extremity Venous Unilateral Ltd; Complete Time: 20:07 kb 10/05 17:33 Order name: Lower Extremity Artery Uni Ltd US; Complete Time: 20:31 kb Administered Medications: 20:57 Drug: Ketorolac IM 30 mg IM once Route: IM; Site: right deltoid; vc1 20:57 Follow up: Response: Medication administered at discharge. vc1 Disposition Summary: 10/05/24 20:30 Discharge Ordered Notes: Location: Home kb Condition: Stable kb Diagnosis - Synovial cyst of popliteal space [Lopez], right knee kb Followup: kb - With: Emergency Department - When: As needed - Reason: Worsening of condition Followup: kb - With: Private Physician - When: 2 - 3 days - Reason: Recheck today's complaints, Continuance of care, Re-evaluation by your physician Discharge Instructions: - Discharge Summary Sheet kb - Lopez Cyst kb Forms: - Medication Reconciliation Form kb - Antibiotic Education kb - Prescription Opioid Use kb - Patient Portal Instructions kb - Leadership Thank You Letter kb Prescriptions: - Diclofenac Sodium 75 mg Oral Tablet Sustained Release - take 1 tablet ORAL route 2 times per day; 30 tablet; Refills: 0, Product kb Selection Permitted Addendum: 10/08/2024 12:41 Co-signature as Attending Physician, Vlad Taylor MD I agree with the assessment and c perez plan of care. Signatures: Dispatcher [employer] EDME Cassie Moya, CATH LABORATORY TECHNICIAN-C CATH LABORATORY TECHNICIAN-Vlad Moore MD MD cha Baxter, Heather, RN RN Sharri Joy RN RN vc1 Corrections: (The following items were deleted from the chart) 10/05 17:33 17:33 Extremity Venous Uni Ltd+US.RAD.BRZ ordered. EDMS EDMS 17:33 17:33 Lower Extremity Artery Uni Ltd+US.RAD.BRZ ordered. EDMS EDMS 17:35 17:28 Pt is a 73 year old female who presents for right knee pain that started kb yesterday. States she was . kb
--- NOTE | 2024-10-05 20:31 | RAD REPORT ---
EXAM:Lower Extremity Artery Uni Ltd HISTORY: right eg pain TECHNIQUE: Sonographic evaluation lower extremity arteries performed.Grayscale, color and spectral analysis performed on all vessels COMPARISON: None. FINDINGS: The right common femoral, superficial femoral, popliteal, posterior tibial and dorsalis pedis arteria l waveforms are monophasic. No high-grade stenosis/occlusion IMPRESSION: Monophasic waveforms right lower extremity may indicate significant aorto/right iliac arterial diseas e
[2024-10-05] MEDS ORDERED: KETOROLAC 30 MG/ML INJ ONE (20:45)
[2024-10-05 21:37] VITALS: TEMP 97.8
[2024-10-05 21:38] VITALS: BP 136/92; O2SAT 93
== END 2024-10-05 21:02 | disposition home or self-care (01) ==
LOC: ER 17:21
DX: M71.21 Synovial cyst of popliteal space [Baker], right knee (principal); F17.210 Nicotine dependence, cigarettes, uncomplicated
CPT/HCPCS: 93926; 93971; 96372; 99284

== ENCOUNTER 2024-12-22 10:05 | Emergency (ER) | payer OTHER ==
--- OUTSIDE RECORDS SUMMARY | 2024-12-22 10:25 | XMS REPORT | Clinical Summary ---
Author Name Unknown Organization [facility] Address [address] [place] [address] Care Team Providers Care Fur Pointer Name Role Phone Ana Lilia Miller MD Unavailable [phone] Social History Tobacco Use Types Packs/Day Years Used Date Smoking Tobacco: Never Assessed Comments Unknown Sex and Gender Information Value Date Recorded Sex Assigned at Not on file Legal Sex Female 10:05 AM CDT Gender Identity Not on file Sexual Orientation Not on file Plan of Treatment Not on file Insurance [employer] ADVANTAGE [employer] Care Teams Fur Pointer Relationship Specialty Start Date End Date Ana Lilia Miller MD [address] [place] [id number] PCP - External Referring Family Practice 08/12/23
--- NOTE | 2024-12-22 11:49 | RAD REPORT ---
EXAM: XR Wrist Right 3 View HISTORY: [facility] MAIN Pain;Deformity Bed Name: 15 COMPARISON: None TECHNIQUE: 3 views of the right wrist. FINDINGS: Impacted and comminuted fractures of the distal radius metaphysis, with intra-articular ext ension. Mild volar apex angulation. Soft tissue swelling about the wrist. Radiocarpal joint alignment appears maintained. Up to moderate degenerative changes at the thumb base. IMPRESSION: Impacted and comminuted distal radius fracture with intra-articular extension.
--- NOTE | 2024-12-22 13:28 | RAD REPORT ---
EXAMINATION: XR RIGHT WRIST CLINICAL INDICATION: post reduction RIGHT TECHNIQUE: Multiple projections of the right wrist were obtained. COMPARISON: Earlier study same date FINDINGS: Distal radius fracture with intra-articular extension noted, reduced and placed within a sp lint, limiting bone detail. No dislocation seen.
--- NOTE | 2024-12-22 13:35 | ER ---
Nurse's Notes [facility] Name: Preethi Ritter Age: 73 yrs Sex: Female : 1950 Arrival Date: 12/22/2024 Time: 10:05 Bed DIS7 Private MD: Diagnosis: Displaced comminuted fracture of shaft of radius, right arm, initial encounter for closed fracture Presentation: 12/22 10:29 Chief complaint: Patient states: fall from standing yesterday. C/o R wrist pain. ss Coronavirus screen: Client denies travel out of the [place] in the last 14 days. Ebola Screen: Patient denies exposure to infectious person. Patient denies travel to an Ebola-affected area in the 21 days before illness onset. Initial Sepsis Screen: Does the patient meet any 2 criteria? No. Patient's initial sepsis screen is negative. Does the patient have a suspected source of infection? No. Patient's initial sepsis screen is negative. Risk Assessment: Do you want to hurt yourself or someone else? Patient reports no desire to harm self or others. Onset of symptoms was December 21, 2024. 10:29 Method Of Arrival: Ambulatory ss 10:29 Acuity: PETE 3 ss Historical: - Allergies: 10:30 No Known Allergies; ss - PMHx: 10:30 breast cancer; Hypercholesterolemia; ss - PSHx: 10:30 left leg; ss - Infectious Disease History:: Denies. - Social history:: Smoking status: Patient reports the use of cigarette tobacco products, smokes one-half pack cigarettes per day. - Family history:: not pertinent. - Hospitalizations: : No recent hospitalization is reported. Screenin:32 [facility] ED Fall Risk Assessment (Adult) History of falling in the last 3 months, kc6 including since admission Yes- single mechanical fall (1 pt) Confusion or Disorientation No (0 pts) Intoxicated or Sedated No (0 pts) Impaired Gait No (0 pts) Mobility Assist Device Used No (0 pt) Altered Elimination No (0 pt) Score/Fall Risk Level 0 - 2 = Low Risk Oriented to surroundings, Maintained a safe environment, Educated pt \T\ family on fall prevention, incl call for assistance when getting out of bed. Abuse screen: Denies threats or abuse. Denies injuries from another. Nutritional screening: No deficits noted. Tuberculosis screening: No symptoms or risk factors identified. Assessment: 10:55 General: Appears in no apparent distress. comfortable, well groomed, well developed, kc6 Behavior is cooperative, appropriate for age, anxious. Pain: Complains of pain in right hand. Neuro: Level of Consciousness is awake, alert, obeys commands, Oriented to person, place, time, situation, Appropriate for age. Cardiovascular: Denies chest pain, shortness of breath, Capillary refill < 3 seconds. Respiratory: Airway is patent Trachea midline Respiratory effort is even, unlabored, Respiratory pattern is regular, symmetrical. GI: No signs and/or symptoms were reported involving the gastrointestinal system. : No signs and/or symptoms were reported regarding the genitourinary system. EENT: No signs and/or symptoms were reported regarding the EENT system. Derm: Skin is fragile, is thin, with poor turgor Skin is dry, Skin is pink, warm \T\ dry. Skin temperature is warm Bruising that is bright red, on right hand and right arm. Musculoskeletal: Range of motion: limited in right wrist Bony deformity noted of right hand. 11:50 Reassessment: Patient appears in no apparent distress at this time. No changes from kc6 previously documented assessment. Patient and/or family updated on plan of care and expected duration. Pain level reassessed. Patient is alert, oriented x 3, equal unlabored respirations, skin warm/dry/pink. 12:58 Reassessment: Patient appears in no apparent distress at this time. No changes from kc6 previously documented assessment. Patient and/or family updated on plan of care and expected duration. Pain level reassessed. Patient is alert, oriented x 3, equal unlabored respirations, skin warm/dry/pink. 13:40 Reassessment: Patient appears in no apparent distress at this time. No changes from kc6 previously documented assessment. Patient and/or family updated on plan of care and expected duration. Pain level reassessed. Patient is alert, oriented x 3, equal unlabored respirations, skin warm/dry/pink. Patient states feeling better. Patient states symptoms have improved. Vital Signs: 10:29 BP 150 / 88; Pulse 117; Resp 18; Temp 97.8(TE); Pulse Ox 100% ; Weight 62.6 kg; Height ss 5 ft. 2 in. ; Pain 8/10; 10:55 BP 136 / 80; Pulse 100; Resp 18 S; Pulse Ox 100% on R/A; kc6 11:50 BP 148 / 88; Pulse 98; Resp 18 S; Pulse Ox 100% on R/A; kc6 12:58 BP 148 / 87; Pulse 105; Resp 18 S; Pulse Ox 100% on R/A; kc6 10:29 Body Mass Index 25.24 (62.60 kg, 157.48 cm) ss 10:29 Pain Scale: Adult ss ED Course: 10:09 Patient arrived in ED. al6 10:27 Rajat Jackson MD is Attending Physician. rn 10:29 Shira Enriquez RN is Primary Nurse. kc6 10:30 Triage completed. ss 10:30 Arm band placed on right wrist. ss 10:32 Patient has correct armband on for positive identification. Placed in gown. Bed in low kc6 position. Call light in reach. Side rails up X2. finishing trimmer on. Pulse ox on. NIBP on. Door closed. Noise minimized. Lights dimmed. Pillow given. Verbal reassurance given. 10:32 Patient maintains SpO2 saturation greater than 95% on room air. kc6 10:46 Ice pack to injury. kc6 11:29 XRAY Wrist RIGHT 3 view In Process Unspecified. EDMS 11:58 applied finger traps to the right hand, index and middle fingers. kc6 12:58 Orthoglass splint: Sugar tong splint applied on right arm. kc6 12:58 Reji wrap to right arm. kc6 13:21 Wrist Right 2 View In Process Unspecified. EDMS 13:34 Adan Hernandez MD is Referral Physician. rn 13:40 No provider procedures requiring assistance completed. Patient did not have IV access kc6 during this emergency room visit. Administered Medications: No medications were administered Medication: 13:40 VIS not applicable for this client. kc6 Outcome: 13:34 Discharge ordered by . rn 13:40 Discharged to home ambulatory, kc6 13:40 Condition: improved 13:40 Discharge instructions given to patient, Instructed on discharge instructions, follow up and referral plans. medication usage, Demonstrated understanding of instructions, follow-up care, medications, splint care, Prescriptions given X 1, 15:04 Patient left the ED. kc6 Signatures: Dispatcher [employer] EDMS Rajat Jackson MD MD rn Blanchard, Shelby, RN RN Shira Schmitz RN RN kc6 Trinity [email or web address] Corrections: (The following items were deleted from the chart) 10:55 10:32 Patient has correct armband on for positive identification. Bed in low position. kc6 Call light in reach. Side rails up X 1. Adult w/ patient. kc6 10:55 10:32 Pulse ox on. NIBP on. kc6 kc6 10:55 10:32 Patient has correct armband on for positive identification. Placed in gown. Bed kc6 in low position. Call light in reach. Side rails up X2. Adult w/ patient. kc6 12:58 12:57 applied finger traps to the right hand, index and middle fingers kc6 kc6
--- NOTE | 2024-12-22 13:35 | EDPHYS ---
Physician Documentation [facility] Name: Preethi Ritter Age: 73 yrs Sex: Female : 1950 Arrival Date: 12/22/2024 Time: 10:05 Bed DIS7 Private MD: ED Physician Rajat Jackson HPI: 12/22 13:32 This 73 yrs old Female presents to ER via Ambulatory with complaints of Fall Injury. rn 13:32 Details of fall: The patient fell from an upright position. Onset: The symptoms/episode rn began/occurred yesterday. Patient reports fall on outstretched hand yesterday. Injury to right wrist. No other injury.. Historical: - Allergies: 10:30 No Known Allergies; ss - PMHx: 10:30 breast cancer; Hypercholesterolemia; ss - PSHx: 10:30 left leg; ss - Infectious Disease History:: Denies. - Social history:: Smoking status: Patient reports the use of cigarette tobacco products, smokes one-half pack cigarettes per day. - Family history:: not pertinent. - Hospitalizations: : No recent hospitalization is reported. ROS: 13:32 Constitutional: Negative for fever, chills, and weight loss, MS/Extremity: Positive for rn injury and pain to right wrist Exam: 13:32 Constitutional: This is a well developed, well nourished patient who is awake, alert, rn and in no acute distress. MS/ Extremity: Right wrist with distal radius tenderness. Dinner fork deformity noted. Radial pulse strong, no distal cyanosis Vital Signs: 10:29 BP 150 / 88; Pulse 117; Resp 18; Temp 97.8(TE); Pulse Ox 100% ; Weight 62.6 kg; Height ss 5 ft. 2 in. ; Pain 8/10; 10:55 BP 136 / 80; Pulse 100; Resp 18 S; Pulse Ox 100% on R/A; kc6 11:50 BP 148 / 88; Pulse 98; Resp 18 S; Pulse Ox 100% on R/A; kc6 12:58 BP 148 / 87; Pulse 105; Resp 18 S; Pulse Ox 100% on R/A; kc6 10:29 Body Mass Index 25.24 (62.60 kg, 157.48 cm) ss 10:29 Pain Scale: Adult ss Procedures: 13:32 Splinting: Splint applied to right wrist using Orthoglass splint, applied by myself. rn post reduction film - reveals improved alignment, Examined by me, post splint application: neurovascular intact, 2+ distal pulses palpable, brisk capillary refill noted, Patient tolerated well. Reduction: of the right wrist, using traction, manipulation, Immobilized with wrist splint, Patient tolerated well. Post reduction film - reveals improved alignment. MDM: 10:27 Medical Screening Exam initiated rn 13:32 Differential diagnosis: fracture. Data reviewed: vital signs, nurses notes, radiologic rn studies, plain films, and as a result, I will discharge patient. Counseling: I had a detailed discussion with the patient and/or guardian regarding the historical points, exam findings, and any diagnostic results supporting the discharge/admit diagnosis, radiology results, the need for further work-up and treatment in the hospital, to return to the emergency department if symptoms worsen or persist or if there are any questions or concerns that arise at home. Special discussion: I discussed with the patient/guardian in detail that at this point there is no indication for admission to the hospital. It is understood, however, that if the symptoms persist or worsen the patient needs to return immediately for re-evaluation. Based on the history and exam findings, there is no indication for further emergent testing or inpatient evaluation. I discussed with the patient/guardian the need to see the orthopedic surgeon for further evaluation of the symptoms. 12/22 10:33 Order name: XRAY Wrist RIGHT 3 view; Complete Time: 11:57 rn 12/22 13:21 Order name: Wrist Right 2 View; Complete Time: 13:38 EDKS 12/22 10:33 Order name: NPO; Complete Time: 10:36 rn 12/22 11:58 Order name: Misc. Order: place in finger traps for wrist fracture, to gravity; Complete rn Time: 12:12 Administered Medications: No medications were administered Disposition Summary: 12/22/24 13:34 Discharge Ordered Notes: Location: Home rn Problem: new rn Symptoms: have improved rn Condition: Stable rn Diagnosis - Displaced comminuted fracture of shaft of radius, right arm, initial encounter for rn closed fracture Followup: rn - With: Adan Hernandez MD - When: 1 week - Reason: Recheck today's complaints, Re-evaluation by your physician Discharge Instructions: - Discharge Summary Sheet rn - Cast or Splint Care, Adult rn - Radial Fracture rn - Wrist Fracture Treated With Immobilization rn Forms: - Medication Reconciliation Form rn - Antibiotic electrical journeyman - Prescription Opioid Use rn - Patient Portal Instructions rn - Leadership Thank You Letter rn Prescriptions: - Tramadol 50 mg Oral Tablet - take 1 tablet ORAL route every 8 hours as needed; 12 tablet; Refills: 0, rn Product Selection Permitted Signatures: Dispatcher [employer] EDMS Rajat Jackson MD MD rn Blanchard, Shelby, RN RN ss Corrections: (The following items were deleted from the chart) 10:33 10:33 Wrist Right 3 View+RAD.RAD.BRZ ordered. EDMS EDMS 13:20 13:12 Wrist Left 3 View+RAD.RAD.BRZ ordered. EDMS EDMS
[2024-12-22 15:09] VITALS: TEMP 97.8; O2SAT 100
[2024-12-22 15:13] VITALS: BP 148/87
== END 2024-12-22 15:04 | disposition home or self-care (01) ==
LOC: ER 10:05
PROC: 0PSH35Z Reposition Right Radius with External Fixation Device, Percutaneous Approach (ICD-10-PCS; principal; 2024-12-22)
DX: S52.351A Displaced comminuted fracture of shaft of radius, right arm, initial encounter for closed fracture (principal); W18.30XA Fall on same level, unspecified, initial encounter; F17.210 Nicotine dependence, cigarettes, uncomplicated
CPT/HCPCS: 99284

== ENCOUNTER 2025-01-04 09:35 | Day surgery (SDC) | payer OTHER ==
[2025-01-04] MEDS ORDERED: LIDOCAINE 1% MPF 5 ML VIAL ONE ×2 (10:01→11:22)
[2025-01-04] MEDS ORDERED: MIDAZOLAM HCL 2 MG/2 ML INJ ONE (10:02)
[2025-01-04] MEDS ORDERED: FENTANYL CITR 100 MCG/2 ML ONE (10:02)
[2025-01-04] MEDS ORDERED: dexAMETHasone 4 MG/ML VIAL ONE ×2 (10:02→12:38)
[2025-01-04] MEDS ORDERED: EPINEPHRINE 1 MG/ML VIAL ONE (10:03)
[2025-01-04] MEDS: Ringers Lactate 1,000 ML IV ONE (10:05)
[2025-01-04] MEDS ORDERED: ROPLVACAINE HCL 40 ML ONE (10:18)
[2025-01-04 10:23] LABS: Absolute Basophils 0.1 K/uL (0-0.5); Absolute Eosinophils 0.2 K/uL (0-0.5); Absolute Lymphocytes (CBC) 0.8 K/uL (0.7-4.9); Absolute Monocytes 0.9 K/uL (0.1-1.3); Absolute Neutrophil 8.9 K/uL (1.8-8.0); Basophils % 0.6 % (0-1.3); Eosinophils % 1.6 % (0-4.4); Hematocrit 38.9 % (36.0-45.0); Hemoglobin 13.3 g/dL (12.0-15.0); Lymphocytes % 6.9 % (15.3-44.8); MCH 33.4 pg (27.0-35.0); MCHC 34.2 g/dL (32.0-36.0); MCV 97.6 fL (80-100); Monocytes % 8.4 % (3.3-12.3); Neutrophils % 82.5 % (41.7-73.7); Platelets 372 thou/uL (152-406); RBC Red Blood Cell Count 3.99 M/uL (3.86-4.86); Red Cell Distribution Width 13.2 % (12.1-15.2)
[2025-01-04 10:25] LABS: Anion Gap 8.3 mEq/L (5.0-15.0); Potassium 4.3 mEq/L (3.5-5.1)
[2025-01-04] MEDS ORDERED: propofoL 200 MG/20 ML VIAL IV ONE ×2 (11:22→11:36)
--- NOTE | 2025-01-04 11:29 | RAD REPORT ---
Procedure: Chest Single View HISTORY: Preop COMPARISON: none FINDINGS: The lungs appear clear of acute infiltrate. No significant pleural effusion noted. The heart is normal size. Old left rib fractures.. IMPRESSION: No acute abnormality is displayed.
[2025-01-04] MEDS: CEFAZOLIN SODIUM 1 GM/VIAL ONE (11:34)
[2025-01-04] MEDS ORDERED: EPHEDRINE SULF 50 MG/ML VIAL ONE (11:43)
--- NOTE | 2025-01-04 12:00 | EKG ---
Test Date: 2025-01-04 Test Time: 10:24:08 Supervisor Cell Maintenance: [facility] MEASUREMENT RESULTS: Intervals: Rate: 90 SC: 136 QRSD: 78 QT: 360 QTc: 440 [place]: P: 60 SC: 136 QRS: 55 T: 62 INTERPRETIVE STATEMENTS: Normal sinus rhythm Normal ECG No previous ECG available for comparison Electronically Signed On 01-04-25 11:59:04 CDT by Eliazar Nguyen
[2025-01-04] MEDS ORDERED: Ringers Lactate 1,000 ML IV ONE (12:20)
[2025-01-04] MEDS ORDERED: ONDANSETRON 4 MG/2 ML VIAL ONE (12:38)
--- NOTE | 2025-01-04 13:18 | RAD REPORT ---
EXAM: Fluoroscopy use, HISTORY: COMPARISON: None FINDINGS: Multiple images were sent to PACS, during a fluoroscopically guided procedure. No radiologi st was involved in protocoling or performance of the study, and no radiologist was present for the duration of the procedure. No interpretation of the saved images will be provided. Total fluoroscopy time: 1.4 min. IMPRESSION: Documentation of fluoroscopy use as above Transcribed Date/Time: 01/04/2025 1:18 PM
--- NOTE | 2025-01-04 13:38 | OP ---
Date of Procedure: 01/04/2025 Surgeon: Mina Torres MD Preoperative Diagnosis: Right highly comminuted three-part intra-articular fracture of the distal ra dius. Postoperative Diagnosis: Right highly comminuted three-part intra-articular fracture of the distal r adius. Procedure: Open reduction and internal fixation of distal radius of 3 intra-articular fragments usin g the Acumed 2 volar radius plating set. Estimated Blood Loss: Less than 10 cc. Complications: There were no complications. Specimens: No pathology specimens sent. Indications For Operation: Ms. Ritter is a 74-year-old female, who unfortunately fell injuring her rig ht upper extremity. She was seen and examined in the emergency department, where she was ruled out f or other injuries; however, x-rays were taken which demonstrated a highly comminuted and displaced di stal radius fracture. She did undergo a closed reduction, however, obviously still displaced. Risks , benefits, and alternatives of different methods of treating this including immobilization in a cast or other closed treatment have been discussed with the patient. She states she understands things a s presented and opted for open reduction and internal fixation of distal radius and risks associated with that are discussed with her as well. Description Of Procedure: The patient had a block performed in the holding area and then she was jordi en to the operating room, where general anesthesia was easily obtained by the anesthesia staff. Foll owing this, a well-padded tourniquet was placed on superior right arm. Right upper extremity was the n prepped and draped in usual sterile fashion for the procedure. C-arm was brought in to ensure good quality of use and closed reduction maneuver was done, which does reapproximate the radius fairly we ll, however, obviously unstable. When released, it falls to its previous position. A standard volar approach to the injury was then taken down carefully through skin and soft tissues. Meticulous hemo stasis being maintained using bipolar electrocautery. It should be noted that she does have a scar t ransversely across her volar forearm and there is underlying scar tissue. The structures encountered appear to be intact with the exception of some nylon suture which is in the FCR. The FCR itself mariella ears to be intact, although there is quite a bit of scar and needed to be freed very carefully using tenotomy scissors and blunt dissection. The FCR was then carefully taken radialward and the underlyi ng sheath was divided. There was quite a bit of scars here. Care was taken not to injure the FPL, w hich was palpable with the finger with movement of the thumb, however, appears to be encased in some scar. Muscle belly and tendon were pushed ulnarward to protect the median nerve and the pronator tabby dratus was encountered. This appears to be normal in appearance and it was then divided at its midsu bstance and the volar surface of the radius was exposed. The fracture itself was comminuted. There was also some early interval healing, but use of a small rongeur as well as manual reduction techniqu es and a Slaughter elevator does give a good reduction and it also is a little distal as far as its fract ure position. The standard Acumed plate is compared and it appears to cover the volar surface of the radius quite well giving access to the pegs to intra-articular comminution. The toggle screw was th en placed using biplanar C-arm radiography to ensure good position. The wrist was then reduced again , brought up to the plate, and the distal pegs were then placed holding the reduction. The pegs appe ared to be extra-articular. After this, the remainder of the shaft screws were placed. It was check ed again on x-ray to ensure proper length and position of the plate, screws, and fracture. It was ge ntly irrigated and skin was closed using interrupted nylon sutures. The patient was placed in a very well-padded sterile dressing as well as a volar splint, awakened, and taken to recovery room in good condition. There were no complications. SE/MODL Voice ID: [id number] Report ID: [id number]
[2025-01-04] MEDS: ALBUTEROL 2.5 MG/3 ML NEB SOL ONE (14:18)
[2025-01-04 16:17] VITALS: BP 110/94; TEMP 97.9
[2025-01-04 16:18] VITALS: O2SAT 95
== END 2025-01-04 16:14 | disposition home or self-care (01) ==
LOC: OR 09:35
PROVIDERS: ATTEND Orthopaedic Surgery
PROC: 0PSH04Z Reposition Right Radius with Internal Fixation Device, Open Approach (ICD-10-PCS; principal; 2025-01-04 11:23)
DX: S52.571A Other intraarticular fracture of lower end of right radius, initial encounter for closed fracture (principal)
CPT/HCPCS: 93005; 85025; 80048; 36415; 71045; 25609; J2704 ×2; J1100 ×2; J2003 ×2; J7613; J2250; J3010; J0171; J2405; J7120 ×2; J0690; C1713 ×2; 76000